=== PATIENT | male | born 1950 | race Caucasian/White ===

== ENCOUNTER 2024-08-03 09:47 | Emergency (ER) | payer MEDICARE, OTHER, SELFPAY ==
[2024-08-03 09:55] VITALS: BP 119/70
--- NOTE | 2024-08-03 10:25 | ED.GENMED ---
History of Present Illness
General
Chief Complaint: Weakness
Time Seen by Provider: 08/03/24 10:25
History of Present Illness
History of Present Illness:
TIME OF INITIAL ENCOUNTER: 10:30 AM
HPI: This morning, the patient awoke feeling fine but then had some lightheadedness. Before 8 AM, the patient developed 'a twinge of here' as he points to the left upper part of the chest near the shoulder. He then had some discomfort towards the
left side of the neck. The lightheadedness comes and goes. He feels somewhat weak in the legs that also comes and goes. He overall has no significant symptoms currently. He feels well-hydrated currently. He does take blood pressure medication
with HCTZ.
EXAM:
GENERAL: Well appearing in no distress
HEENT: Moist oral mucosa
CARDIOVASCULAR: No murmurs, normal heart rate, regular rhythm, No chest wall tenderness
PULMONARY: No respiratory distress, breath sounds are clear and equal
ABDOMEN: Soft with no peritoneal signs, no tenderness
NEUROLOGIC: Excellent strength all extremities, no coordination deficits
PSYCHIATRIC: Appropriate mental status, normal insight and judgement
EXTREMITIES: Nontender, no edema, moves all extremities equally
SKIN: No rash, no lesions
NUMBER AND COMPLEXITY OF PROBLEMS ADDRESSED AT THE ENCOUNTER
� Chronic conditions affecting care: High blood pressure
� Acute Exacerbation and/or Progression of Chronic Illness: This is an acute problem
� Differential Diagnosis includes: Doubt dehydration as patient states he has been drinking plenty of fluid, hyponatremia as he is on HCTZ, viral syndrome, very low suspicion for ACS as he just has 'a twinge' of chest, although
his room air sats vary from 92% to 98%, he has no shortness of breath.
AMOUNT AND/OR COMPLEXITY OF DATA TO BE REVIEWED AND ANALYZED
� I performed an independent evaluation of and my interpretation is:
EKG: Sinus 85, leftward axis deviation, nonspecific ST abnormality, first-degree AV block with no old to compare (210 ms)
CT:
X-rays: Chest x-ray shows right hemidiaphragm versus large diaphragmatic hernia but no evidence of pneumonia
Laboratory Studies: CBC, chemistry, troponin less than 0.012
Other:
� Review of other/old records: [facility]
� Clinical information was obtained by an independent historian: Spoke to at bedside
� Prescriptions/Medications Considered but not given:
� Further testing considered but not performed:
RISK OF COMPLICATIONS AND/OR MORBIDITY OR MORTALITY OF PATIENT MANAGEMENT
� Social determinants of health affecting care: Lives at home
� Discussion with other providers:
� Escalation of care including admission/observation vs risk of discharge considered: the patient had a troponin drawn over 3 hours after chest pain onset. Troponin and vital signs and EKG unremarkable. Mild hypoxia noted
however the patient reports no shortness of breath. Chest x-ray shows elevated right hemidiaphragm versus possible diaphragmatic hernia
ANY OTHER UPDATES:
12:50 PM: On reassessment without any intervention, the patient feels fine and has no further symptoms. I recommend that he follows up with a farm contractor. He states that he saw farm contractor many years ago but cannot remember with whom.
Past History
Past History
ED Past Medical History: Other (Hypertension, shoulder replacement,)
Social History
Tobacco: Former smoker
Alcohol: Occasional
Family History
Family History: Other (Mother with breast cancer)
Phy Exam
Physical Exam
Physical Exam:
See HPI
Course
Orders/Labs/Results
Orders:
Orders
08/03/24 09:58
Electrocardiogram (*1) Urgent
Reason for Study: Chest Pain
EKG- Treatment ONCE
08/03/24 10:33
CR Chest - 2 Views Urgent
Comment:
Reason For Exam: mild hypoxia
08/03/24 11:20
Complete Blood Count/With Diff Urgent
Comprehensive Metabolic Panel Urgent
Troponin I Urgent
Abnormal Lab Results
08/03/24
11:20
Absolute Lymphs (auto) 0.6 L 10^3/uL
(1.2-3.4)
Absolute Monos (auto) 0.7 H 10^3/uL
(0.1-0.6)
Lymphocytes % 10.0 L %
(20.5-51.1)
Monocytes % 11.0 H %
(1.7-9.3)
BUN 27 H mg/dl
(9-20)
08/03/24 11:20
08/03/24 11:20
Vital Signs
Initial and Last Documented VS:
Initial Vital Signs
Temp Pulse Resp BP Pulse Ox
36.7 C 79 16 119/70 98
08/03/24 09:55 08/03/24 09:55 08/03/24 09:55 08/03/24 09:55 08/03/24 09:55
Last Documented Vital Signs
Temp Pulse Resp BP Pulse Ox
36.7 C 62 16 135/83 95
08/03/24 09:55 08/03/24 12:00 08/03/24 10:38 08/03/24 12:00 08/03/24 12:00
*Critical Care Note
Total Time (30-74mins, 75-104mins- exclusive of procedures): Not Applicable
ED Attending Note
-
Portions of this chart may have been created with voice recognition software.� Occasional wrong word or��sound alike� substitutions may have occurred due to the inherent limitations of voice recognition software.
Discharge Plan
Departure
Prescriptions:
No Action
valsartan-hydrochlorothiazide 160-12.5 mg Tablet
1 tab PO DAILY
multivitamin Capsule
1 cap PO DAILY
Fish Oil Capsule
1,000 mg PO DAILY
cholecalciferol (vitamin D3) [Vitamin D3] 25 mcg (1,000 unit) Tablet,Chewable
25 mcg PO DAILY
Referrals:
Rito Saravia MD [Family Provider, Family Practice]
Interventions
Interventions:
*Risk Screen - Suicide Last Done: 08/03/24 09:55
*General Assessment Last Done: 08/03/24 10:35
*Neglect/Abuse Screening Last Done: 08/03/24 09:55
*ED- Fall Risk Assessment Last Done: 08/03/24 10:35
*ED COVID-19 Vaccine History Last Done: 08/03/24 10:35
ED- Cardiac Assessment Last Done: 08/03/24 10:31
ED- Neurological Assessment Last Done: 08/03/24 10:31
ED- Pulmonary Assessment Last Done: 08/03/24 10:31
Discharge Date and Time
Print Language: GREEK
[2024-08-03 10:35] VITALS: BMI 32.2
[2024-08-03 10:38] VITALS: BP 106/66
[2024-08-03 11:00] VITALS: BP 118/78
[2024-08-03 11:28] VITALS: BP 134/93
[2024-08-03 11:35] LABS: % Basophils 0.5 % (0-2); % Eosinophils 4.2 % (0-6); % Immature Granulocytes 0.3 % (0-0.5); Absolute Eosinophils 0.3 10^3/uL (0-0.7); Absolute Lymphocytes 0.6 10^3/uL (1.2-3.4); Absolute Monocytes 0.7 10^3/uL (0.1-0.6); Absolute Neutrophils 4.6 10^3/uL (1.4-6.5); Hematocrit 47.9 % (39.0-52.0); Hemoglobin 16.4 g/dL (13.0-18.0); Mean Corp Hgb Conc. 34.2 g/dL (33.0-37.0); Mean Corpuscular Hgb 30.1 pg (27.0-31.0); Mean Corpuscular Volume 88.1 fL (80.0-94.0); Mean Platelet Volume 9.3 fL (7.4-10.4); Nucleated Red Blood Cells % 0 % (-); Platelet Count 257 10^3/uL (130-400); Red Blood Cell Count 5.44 10^6/uL (4.70-6.10); Red Cell Dist. Width 13.2 % (11.5-14.5); White Blood Cell Count 6.2 10^3/uL (4.8-10.8)
[2024-08-03 11:42] LABS: ALT (SGPT) 27 U/L (0-50); AST (SGOT) 26 U/L (17-59); Albumin 4.2 g/dl (3.5-5.0); Alkaline Phosphatase 55 U/L (38-126); Blood Urea Nitrogen 27 mg/dl (9-20); Calcium 9.4 mg/dl (8.4-10.2); Carbon Dioxide 28 mmol/L (22-30); Chloride 107 mmol/L (98-107); Estimated Creatinine Clearance 67 ml/min; Glucose 90 mg/dl (70-99); Potassium 3.9 mmol/L (3.5-5.1); Sodium 141 mmol/L (135-145); Total Bilirubin 0.7 mg/dl (0.2-1.3); Total Protein 6.7 g/dl (6.3-8.2); eGFR > 60.00
[2024-08-03 11:53] LABS: Troponin I < 0.012 ng/ml
[2024-08-03 12:00] VITALS: BP 135/83
[2024-08-03 13:00] VITALS: BP 120/80
== END 2024-08-03 13:35 | disposition home or self-care (01) ==
LOC: EMR 09:47
PROVIDERS: EMERGENCY PHYSICIAN Emergency Medicine; FAMILY PHYSICIAN Family Medicine
DX: R42 Dizziness and giddiness (principal); R53.1 Weakness; R07.89 Other chest pain; I10 Essential (primary) hypertension; Z96.619 Presence of unspecified artificial shoulder joint; Z87.891 Personal history of nicotine dependence
CPT/HCPCS: 99283; 71046; 80053; 84484; 85025; 93005

== ENCOUNTER → 2024-08-08 13:55 | Outpatient (REF) | payer MEDICARE, OTHER, SELFPAY | LOC: HWRCS 13:55 | PROVIDERS: ATTENDING PHYSICIAN Internal Medicine Cardiovascular Disease; FAMILY PHYSICIAN Family Medicine | DX: R06.09 Other forms of dyspnea (principal) | CPT/HCPCS: 93306 ==

== ENCOUNTER → 2024-08-21 10:51 | Outpatient (REF) | payer MEDICARE, OTHER, SELFPAY | LOC: RCS 10:51 | PROVIDERS: ATTENDING PHYSICIAN Internal Medicine Cardiovascular Disease; FAMILY PHYSICIAN Family Medicine | DX: R07.9 Chest pain, unspecified (principal) | CPT/HCPCS: 78452; 93017; A9500 ==

== ENCOUNTER 2024-08-22 09:05 | Day surgery (SDC) | payer MEDICARE, OTHER, SELFPAY ==
[2024-08-22] VITALS (13 sets, daily range): BP systolic 90–140; BP diastolic 65–95; BMI 33.7
[2024-08-22] MEDS: LOW STRENGTH ASPIRIN 324 MG PO (09:54)
[2024-08-22] MEDS: NSS 280 ML IV (09:56)
--- NOTE | 2024-08-22 14:25 | ITS.CL.CATH ---
Data Visualization Developer - Catheterization
Cardiac Catheterization
Procedure Report:
LEFT HEART CATHETERIZATION
Date of Procedure: August 22, 2024
Referring: Jayesh Carlos.
PROCEDURES:
1. Left heart catheterization, coronary angiogram.
2. Moderate sedation.
INDICATION: Abnormal stress test
ACCESS: Right radial artery, 6Fr. sheath, under US guidance.
HEMODYNAMICS : (mmHg)
AO (s/d) : 112/70
LVEDP : 17
Upon pullback and invasive transaortic mean gradient of about 25 mmHg was noted concerning for possible moderate aortic stenosis.
CORONARY FINDINGS
Dominance: Right
Left Main Trunk (LMT): Large caliber vessel that gives rise to the LAD and LCx branches and there is mild diffuse atherosclerotic plaque
Left Anterior Descending Artery (LAD): Large caliber vessel that gives off 1major diagonal branch as it courses along the anterior inter-ventricular groove before wrapping around the cardiac apex. Mid LAD just distal to the takeoff of the major
diagonal has 80 to 85% stenosis. Proximal portion of D1 also has a 70% stenosis. Distal to apical LAD appears to be 100% chronic total occlusion with right to left collaterals. There is also evidence of collaterals from LAD septals to the apical
LAD
Left Circumflex Artery (LCx): Large caliber vessel that gives off 2 major obtuse marginal (OM) branches as it courses along the atrio-ventricular (AV) groove. There is a high rising OM1 that has a eccentric 70 to 80% ostial to proximal stenosis
with the distal vessel being a good bypass target. Mid left circumflex just proximal to the takeoff of a ectatic OM 2 with an eccentric 60 to 70% stenosis.
Right Coronary Artery (RCA): Large caliber dominant vessel that gives rise to the posterior descending artery (RPDA) and postero-lateral ventricular (RPLV) branches distally. The RCA is a very ectatic vessel with mild to moderate diffuse
atherosclerotic plaque. The RPL branch is medium caliber with a 80% occlusion in the midportion. Distal RPDA has 40% stenosis. Right to left collaterals are also noted.
SEDATION: 27 minutes of procedural sedation was utilized. IV Midazolam and IV Fentanyl were administered. An independent medical apparatus model maker was present to assist with and help manage the patient's level of consciousness and physiologic status.
RADIATION SUMMARY: Fluoro Time (min): 1.5, Dose (mGy): 404.88, DAP (Gy.cm2) : 26.7
Closure Device: There were no immediate intra-procedural complications. The sheath was pulled in the cardiac cath lab manager and a vascular-band applied to the right wrist for radial artery hemostasis using the patent hemostasis technique.
CONCLUSIONS
1. Multivessel coronary artery disease as described above.
2. Upon pullback and invasive transaortic mean gradient of about 25 mmHg was noted concerning for possible moderate aortic stenosis.
3. LVEDP of 17 mmHg.
RECOMMENDATIONS
1. Wean radial band per protocol. Monitor right hand perfusion and for bleeding from the radial site following removal of the vascular-band following trans-radial access.
2. Continue aggressive medical therapy and risk factor modification for secondary CAD prevention.
3. Hydrate with normal saline to mitigate the risk of contrast-induced acute kidney injury.
4. Outpatient CT surgery consult for discussion and consideration of coronary artery bypass grafting versus continued medical therapy.
Copy to: Jayesh Carlos. and Mg Avalos
Ketty Longo MD, [facility], [facility]
[2024-08-22] MEDS: TOPROL XL 25 MG PO (14:31)
== END 2024-08-22 16:50 | disposition home or self-care (01) ==
LOC: CATH 09:05
PROVIDERS: ATTENDING PHYSICIAN Internal Medicine Interventional Cardiology; FAMILY PHYSICIAN Family Medicine; OTHER PHYSICIAN Internal Medicine Cardiovascular Disease
DX: I25.10 Atherosclerotic heart disease of native coronary artery without angina pectoris (principal); R94.39 Abnormal result of other cardiovascular function study; R07.9 Chest pain, unspecified; I10 Essential (primary) hypertension; I44.0 Atrioventricular block, first degree; Z87.891 Personal history of nicotine dependence; Z79.82 Long term (current) use of aspirin
CPT/HCPCS: 99152; 99153; C1894; 93458; Q9967

== ENCOUNTER → 2024-09-08 15:19 | Outpatient (REF) | payer MEDICARE, OTHER, SELFPAY | LOC: RAD 15:19 | PROVIDERS: ATTENDING PHYSICIAN Thoracic Surgery (Cardiothoracic Vascular Surgery); FAMILY PHYSICIAN Family Medicine | DX: I25.10 Atherosclerotic heart disease of native coronary artery without angina pectoris (principal); I35.0 Nonrheumatic aortic (valve) stenosis; Z01.810 Encounter for preprocedural cardiovascular examination | CPT/HCPCS: 75573; Q9967 ==

== ENCOUNTER 2024-09-12 05:25 | Inpatient (IN) | payer MEDICARE, OTHER, SELFPAY ==
[2024-09-04 08:25] VITALS: BMI 33.6
[2024-09-04 09:00] LABS: Urine Character Clear (Clear)
[2024-09-04 09:07] LABS: Hematocrit 46.8 % (39.0-52.0); Hemoglobin 16.1 g/dL (13.0-18.0); Mean Corp Hgb Conc. 34.4 g/dL (33.0-37.0); Mean Corpuscular Volume 87.3 fL (80.0-94.0); Nucleated Red Blood Cells % 0 % (-); Platelet Count 243 10^3/uL (130-400); Red Cell Dist. Width 12.8 % (11.5-14.5)
[2024-09-04 09:09] LABS: INR 1.10; PT 14.7 Sec (11.4-14.6)
--- NOTE | 2024-09-04 10:15 | CM ---
Met with and Mrs. Campos in [facility]'s. He states prior to admission he resides with his spouse in a two story home with two steps to enter. He states he has a bedroom/full bathroom on both levels. He states he goes up a full flight of steps to
his bedroom/full bathroom. He states prior to admission he was independent with ambulation and adls. He states he does not have any DME in the home. He states he has a prescription plan. His spouse states she will be home to assist in h is care if
needed. Medical work-up in progress. The discharge plan is to return home with his spouse and a home visit by the Transitional Care Nurse when medically stable.
We reviewed pre-op and post-op routines. We reviewed the shower instructions. He has a the soap, written instructions and the Cardiothoracic Surgery Educational Booklet. We reviewed restrictions including sternal precautions and driving
restrictions. We also discussed a home visit by the Transitional Care Nurse. He is agreeable to a home visit. The plan is to for AVR and CABG on Thursday, September 12, 2024.
[2024-09-04 10:21] LABS: ALT (SGPT) 24 U/L (0-50); AST (SGOT) 29 U/L (17-59); Albumin 4.4 g/dl (3.5-5.0); Alkaline Phosphatase 58 U/L (38-126); Blood Urea Nitrogen 22 mg/dl (9-20); Calcium 9.6 mg/dl (8.4-10.2); Carbon Dioxide 29 mmol/L (22-30); Chloride 104 mmol/L (98-107); Estimated Creatinine Clearance 62 ml/min; Glucose 85 mg/dl (70-99); Potassium 4.0 mmol/L (3.5-5.1); Sodium 140 mmol/L (135-145); Total Protein 7.0 g/dl (6.3-8.2); eGFR > 60.00
[2024-09-04 10:44] LABS: Glycohemoglobin (HgbA1c) 5.6 % (4.0-5.6)
[2024-09-12] VITALS (17 sets, daily range): BP systolic 73–143; BP diastolic 49–79; BMI 32.9
--- NOTE | 2024-09-12 05:49 | PTCARENOTE ---
admitted pt into 2260. pt admits to 2 chg showers and NPO since midnight. pt clipped, prepped, admission and med rec completed, meds given. all questions answered. awaiting cvor
[2024-09-12] MEDS: LOPRESSOR 25 MG PO (05:50)
[2024-09-12] MEDS: PROTONIX 40 MG PO (05:50)
[2024-09-12] MEDS: BACTROBAN 2% OINTMENT 1 APPLIC NASAL ×2 (05:51→21:16)
[2024-09-12] MEDS: MAGNESIUM OXIDE 500 MG PO (05:51)
--- NOTE | 2024-09-12 06:10 | W.CVOR.SURPR ---
CVOR Surgeon Immed Pre Op
-
I have examined this patient prior to performance of the scheduled procedure.
The patient's condition is unchanged from the time of the dictated/written History and
Physical and the patient is able to undergo the scheduled procedure.
CABG + AVR + LAAE
[2024-09-12 07:43] LABS: ACT+ - POC 145 Seconds (82-134)
[2024-09-12 07:49] LABS: Urine Character Clear (Clear)
[2024-09-12 08:01] LABS: Urine Red Blood Cell 0-2 /HPF (0-2)
[2024-09-12 09:20] LABS: ACT+ - POC 561 Seconds (82-134)
[2024-09-12 09:23] LABS: B.E. - POC -0.4 mmol/L; Glucose - POC 91 mg/dl (70-99); HCO3 - POC 25 mmol/L (21-28); Hematocrit - POC 40 % PCV (42-52); Hemodilution- POC No; Hemoglobin Calculated - POC 13.7; Ionized Calcium - POC 1.17 mmol/L (1.15-1.33); Lactate - POC 0.39 mmol/L (0.36-0.75); O2 Saturation %Calculated-POC 99.8 % (94-98); PCO2 - POC 40 mmHg (35-48); PO2 - POC 212 mmHg (83-108); Potassium - POC 2.7 mmol/L (3.5-5.1); Sodium - POC 142 mmol/L (136-145); Specimen Type - POC Arterial; pH - POC 7.39 (7.35-7.45)
[2024-09-12 10:33] LABS: ACT+ - POC 671 Seconds (82-134)
[2024-09-12 10:59] LABS: ACT+ - POC 498 Seconds (82-134)
[2024-09-12 11:16] LABS: ACT+ - POC 707 Seconds (82-134)
--- NOTE | 2024-09-12 11:28 | CM ---
Chart reviewed. Patient is in the OR today. Patient is independent of ADLS, lives with his in a 2 STH, 2 KIKI, 0 DME. Plan is for the patient to return home with CT Transitional RN. CM to follow
[2024-09-12 11:30] LABS: ACT+ - POC 674 Seconds (82-134)
[2024-09-12 11:30] LABS: B.E. - POC -0.4 mmol/L; Glucose - POC 147 mg/dl (70-99); HCO3 - POC 24 mmol/L (21-28); Hematocrit - POC 35 % PCV (42-52); Hemodilution- POC Yes; Hemoglobin Calculated - POC 11.9; Ionized Calcium - POC 1.09 mmol/L (1.15-1.33); Lactate - POC 0.69 mmol/L (0.36-0.75); O2 Saturation %Calculated-POC 100.0 % (94-98); PCO2 - POC 35 mmHg (35-48); PO2 - POC 391 mmHg (83-108); POC Comment WARM; Potassium - POC 3.7 mmol/L (3.5-5.1); Sodium - POC 140 mmol/L (136-145); Specimen Type - POC Arterial; pH - POC 7.43 (7.35-7.45)
[2024-09-12 11:35] LABS: ACT+ - POC 153 Seconds (82-134)
--- NOTE | 2024-09-12 12:03 | W.PN.CT.SURG ---
CT Surgery Operative Note
-
CARDIAC SURGERY OPERATIVE REPORT
Preoperative Diagnosis: Moderate aortic valve stenosis with multivessel coronary artery disease
Postoperative Diagnosis: Same
Procedure(s) Performed:
1. Standard sternotomy with aortic and right atrial cannulation
2. Internal mammary artery harvesting, left
3. Endoscopic vein harvesting of the right lower extremity
4. Coronary artery bypass grafting x 4 (In situ DAVILA to LAD, Ao to RSVG to high diagonal to OM, Ao to RSVG to RPL B)
5. Trans-esophageal echocardiography
6. Placement of temporary ventricular pacing wires
7. Surgical aortic valve replacement [25 mm bioprosthesis]
Date of Surgery: 09/12/2024
Comorbidities:
1. Multi vessel coronary artery disease, symptomatic
2. Moderate aortic valve stenosis with heavily calcified valve
3. Hypertension
4. Hyperlipidemia
5. Elevation of right hemidiaphragm, idiopathic
Attending Surgeon: Connor Espinoza MD, MS
Assistants: Jody Hilliard PA-C (present and necessary to first line supervisor, endoscopic vein harvest, retraction, suction, exposure, suture management, and wound closure under my direction) and Brown Pickett, PGY 2 (Cardiac Surgery Resident)
Anesthesiology: Pardeep Messina MD and Dario Campbell CRNA
Scrub and Circulating RNs: Doni Payton RN, Thao Chen RN
Tow Bar Driver: Lucinda Blunt CCP
Anesthesia: GETA
EBL: per perfusion records
Products: None
CPB Time: 123 minutes
Aortic Cross Clamp Time: 110 minutes
Indication(s) for Procedures: This is a 74-year-old male who had a stress test that was found abnormal. This led to left heart catheter demonstrated multivessel coronary artery disease involving the proximal LAD. He is also found to have a
moderate degree of aortic valve stenosis. He has been recently becoming more symptomatic and so is referred for surgical intervention. I offered him AVR and CABG. The risk and benefits were discussed as well as the STS risk reviewed. Ultimately
shared decision making was to pursue operative intervention..
Aortic Valve Description: Heavily calcified most of the noncoronary cusp with large calcium infiltration into the annulus. The right and left were also calcified but not nearly as bad as the noncoronary cusp.
Conduit(s) Quality:
DAVILA -excellent/Shila
RSVG -good/minor thickening but overall good quality
Target(s) Quality:
RPLB -small/flow probe assessment demonstrated a mean flow of approximately 15 cc a minute but there was a high pulsatility index indicating likely not significant proximal disease
OM -small/overall good flow and test dosing antegrade, the sequential graft here had a mean flow of 27 cc a minute with a pulse index of 2.9
Diagonal -excellent/large sized target with the distal end of the sequential graft clamp, there was a mean flow approximately 40 to 50 cc a minute here, again mean flow from the sequential graft on flow probe was 27 cc a minute with a pulse index of
2.9
LAD -excellent/the midportion LAD was free of calcium however the distal apex was heavily calcified and was the proximal portion of the LAD. Mean flow on Transonic flow probe assessment was 18 cc a minute with a pulse index of 4.6
Findings: LVEF on intraoperative JOSÉ MIGUEL was 60% and 60% post procedure with no new regional wall motion abnormalities. ST segments were isoelectric on EKG. There was no prosthetic PVL or AI. Mean gradient across the prosthesis was 6 mmHg. The DAVILA was
harvested in a skeletonized fashion. Following bypass grafting, test dose cardioplegia was given down each distal and confirmed patency and hemostasis. The aortic valve was replaced with a 25 mm bioprosthesis a total of 14 nonpledgeted 2-0 Ethibond
sutures placed from LVOT through annulus through sewing cuff and secured in place with core knots. The noncoronary cusp was mostly calcified here. Following surgery, he did not require inotropic support, he responded well to volume loading. He
did not require any blood products. And he was in sinus rhythm. Cardiac index was over 2.
Specimen(s): Aortic valve leaflets.
Prosthesis:
1. 25 mm Roberts Somairis Resilia aortic valve, serial #[id number]
Description of Procedure: The patient was taken to the operating room. Their identity and procedure to be performed were verified and they were positioned supine on the operating table. Induction via general anesthesia with endotracheal intubation
was performed and central venous access and arterial monitoring were inserted. A preoperative transesophageal echocardiogram was performed. The patient was then prepped and draped from chin to feet in a sterile fashion. A preoperative time-out was
performed with all members of the team present. A midline chest incision was performed along with median sternotomy. Simultaneous endoscopic access of the right lower extremity for saphenous vein harvest was obtained along with administration of an
initial 5,000 units of IV heparin. A RulTract sternal retractor was positioned to exposure the left internal mammary bed. The mammary was harvested in a skeletonized pedicle fashion and found to have good flow. A bulldog clamp was applied to the
distal end of the mammary after dividing it. It was wrapped in a papaverine soaked RayTec and replaced back into the left hemithorax. The RulTract was exchanged for a median sternal retractor. The innominate vein was isolated. Full heparinization
was given (a total of 52,000 units). I created a pericardial well. The aortic cannulation site was chosen where it was soft, pliable, and free of calcium. Cannulation was performed with an arterial cannula in the ascending aorta and a triple-stage
venous cannula through the right atrial appendage. The arterial cannula line had an appropriate bounce and correlating pressures with test dosing. Next, a root vent/antegrade cannula was inserted into the ascending aorta. The ACT was confirmed to be
over 400 and retrograde autologous priming was performed before commencing cardiopulmonary bypass. The pulmonary artery was away from the aorta to facilitate a clamp site. The aortic cross-clamp was placed after decreasing the flow on the
bypass and mean arterial pressure. A total of 1.2L initial dose of antegrade Del-Nido cardioplegia solution was given and planned for re-dosing every 75 minutes as necessary. There was rapid electro-mechanical arrest of the heart at 300 cc of
cardioplegia. The left ventricle was observed for distention on echocardiogram and manual palpation. Cold slush was placed into a sponge and topically on the RV while we systemically cooled to 34 degrees centigrade.
I positioned the heart to expose the distal right coronary at the posterior lateral branch. A kake blade was used to expose the coronary and perform the arteriotomy. Coronary Max scissors were used to enlarge the incision. The saphenous vein was
trimmed and beveled to an appropriate size. The distal anastomosis was performed using 7-0 prolene in an end-to-side fashion. Antegrade cardioplegia was administered into the graft. Appropriate hemostasis and flow were confirmed. The graft was
measured for length to the aorta and cut. A suitable site on the obtuse marginal was chosen. We dissected and prepared the distal target in a similar fashion. An end-to-side anastomosis was created with a 7-0 prolene. Antegrade cardioplegia was
administered into the graft. Appropriate hemostasis and flow were confirmed. I then prepared the high diagonal branch in a similar fashion. A small coronary tree artery was then created and the underbelly of the vein was incised. A [id number]
anastomosis with the OM graft was used. I clamped the distal end of the sequential graft and gave cardioplegia down to test for both hemostasis and flow. Both were excellent. The graft was measured for length to the aorta and cut. A suitable
target on the mid/distal left anterior descending was identified. We dissected and prepared the distal target in a similar fashion. We retrieved the DAVILA from the chest and created a pericardial opening while being cognizant of the phrenic nerve to
facilitate the course of the mammary. The distal end of the mammary was prepped and beveled to size. We verified orientation and length of the RYLIE and found brisk flow. An end-to-side anastomosis was created with a 7-0 prolene. We temporarily
released the bulldog clamp on the mammary to inspect flow. Perfusion to the LAD territory was visualized and hemostasis was confirmed. The bull clamp was replaced on the mammary.
Carbon dioxide was used to flood the field. I turned my attention to the aortic valve and manually identified the location of the right coronary take off. An aortotomy was made approximately 1.5cm above the sinotubular junction. The location of both
left and right coronary vessels were visualized in the root. The aortic valve was inspected and found to be heavily calcified. The leaflets were excised and sent for pathological assessment. The annulus was debrided of any calcium. The root and left
ventricular outflow tract were thoroughly irrigated to remove any debris. A total of 14, nonpledgeted 2-0 ethibond annular sutures were placed [id number] circumferentially. These were brought through the sewing cuff of the prosthetic valve which
as then parachuted into place. The left and right coronary ostia were visualized and were unobstructed by the valve. A Cor-Knot device was used to secure the annular sutures. The valve was inspected and was well seated. The aortotomy was
approximated with 4-0 prolene in two layers. The heart was filled and the root was distended with antegrade cardioplegia to make final assessment of graft length and orientation. I created 2 aortotomies using a #11 blade then a 4.0mm aortic punch
above the aortic suture line. The proximal anastomoses were created in an end-to-side fashion using 6-0 prolene. At the same time, we started to re-warm to 36.5 degrees centigrade. The bulldog clamp was removed from the mammary and temporary bipolar
ventricular pacing wires were placed on the base of the right ventricle. The patient was placed in a Trendelenburg position and flows on bypass were lowered. The aortic cross clamp was removed and flows were slowly brought back up. The aortotomy
appeared hemostatic. All bypass grafts were inspected and were free from kinking or twisting. The distal and proximal anastomoses appeared hemostatic. De-airing maneuvers were performed. Transesophageal echocardiography revealed no paravalvular leak
and appropriate prosthetic function. Once de-airing was satisfactory, the left ventricular and root vents were removed. After verifying acceptable parameters, we initiated weaning from cardiopulmonary bypass. Once we were off cardiopulmonary bypass,
the venous cannulas was clamped and removed. A test dose of protamine was administered and the patient was monitored for any adverse reaction before resuming protamine. Once half of the protamine dose was delivered, pump suckers were turned off and
the systolic blood pressure was lowered for aortic decannulation. The aortic cannula was removed and pursestrings were tied down. All cannulation sites were oversewn with a 4-0 prolene. The aortic line, proximal, and distal coronary anastomoses were
hemostatic. The mammary bed was inspected and hemostasis was confirmed. Once the mediastinum was hemostatic, a 19Fr Jaspreet drain was placed in the left pleural cavity and two 24Fr Jaspreet drains were placed within the pericardium. The sternum was
approximated with 4#7 single and 3 #8 double stainless steel wires. Fascia was approximated with #1 vicryl suture. The subcutaneous, dermis and epidermis were closed in layers in a running fashion. The skin wound was cleansed and dressed.
All instrument, sponge, and needle counts were confirmed to be correct x 2 at the end of the operation. The patient was transferred to the cardiac intensive care unit in critical but stable condition.
I, Dr. Connor Espinoza, was present, scrubbed for, and performed all critical elements of this procedure.
Connor Espinoza MD, MS
Cardiothoracic Surgeon
[facility]
This operative dictation was created using the [email or web address] dictation system. Please excuse any grammatical, typographical, or 'sound alike' errors
[2024-09-12 12:11] LABS: B.E. - POC -2.8 mmol/L; Glucose - POC 124 mg/dl (70-99); HCO3 - POC 21 mmol/L (21-28); Hematocrit - POC 32 % PCV (42-52); Hemodilution- POC Yes; Hemoglobin Calculated - POC 10.9; Ionized Calcium - POC 1.30 mmol/L (1.15-1.33); Lactate - POC 1.05 mmol/L (0.36-0.75); O2 Saturation %Calculated-POC 91.6 % (94-98); PCO2 - POC 34 mmHg (35-48); PO2 - POC 62 mmHg (83-108); POC Comment POST; Potassium - POC 3.1 mmol/L (3.5-5.1); Sodium - POC 140 mmol/L (136-145); Specimen Type - POC Arterial; pH - POC 7.40 (7.35-7.45)
[2024-09-12 12:58] LABS: Glucose - Point of Care 117 mg/dl (70-99)
[2024-09-12 13:06] LABS: Hematocrit 38.2 % (39.0-52.0); Hemoglobin 13.5 g/dL (13.0-18.0); Platelet Count 200 10^3/uL (130-400)
[2024-09-12 13:13] LABS: B.E. -2.9 mmol/L; HCO3 22.0 mmol/L (21-28); O2 Saturation % 95.0 % (94-98); PCO2 38 mmHg (35-48); PO2 64 mmHg (83-108); Potassium 3.8 mMOL/L (3.5-5.1); Sodium 136 mMOL/L (136-145)
[2024-09-12 13:15] LABS: O2 Therapy vent
[2024-09-12 13:18] LABS: INR 1.69; PT 20.1 Sec (11.4-14.6)
[2024-09-12 13:19] LABS: APTT 38.6 Sec (23.4-35.0)
[2024-09-12] MEDS: CALCIUM GLUCONATE 100 IV (13:30)
[2024-09-12] MEDS: KCL 50 IV ×2 (13:30→18:51)
[2024-09-12 13:38] LABS: Blood Urea Nitrogen 18 mg/dl (9-20); Estimated Creatinine Clearance 85 ml/min; Glucose 111 mg/dl (70-99); Magnesium 2.8 mg/dl (1.6-2.3)
--- NOTE | 2024-09-12 13:44 | W.PN.CARDCBS ---
Addendum entered and electronically signed by Mor Leon MD 09/12/24 19:15:
74-year-old male who earlier today underwent elective CABG x 4, DAVILA to LAD, SVG to diagonal to OM, SVG to right posterolateral, with 25 mm Roberts Inspira's Resilia valve.
PMH: CAD/aortic stenosis, hypertension, paralyzed right hemidiaphragm
Meds reviewed.
SH: Former smoker
Currently extubated, hemodynamics satisfactory, on dobutamine and norepinephrine at low-dose, communicative, cooperative, not complaining of pain
Diminished breath sounds bases regular rate and rhythm, right leg wrapped, chest incision intact, no obvious murmurs
Labs reviewed, hemoglobin 13.1, creatinine 0.8,Chest x-ray with elevated right hemidiaphragm, tubes, sternotomy wire, endotracheal tube visualized
ECG sinus bradycardia first-degree AV block, minor diffuse T wave changes
Impression:
As below per Jv Alvarez. Reviewed in detail and agree unless otherwise specified
Plan:
Doing well immediately postop
Appreciate efforts of CT surgical team
We will continue to follow-up
Original Note:
Today's Communication / Plan
-
continue post op care
Impression / Plan
-
PCP: Dr. Lea
Cardiology: Dr. Avalos
Impression:
MV CAD
s/p CABG x 4 (In situ DAVILA to LAD, Ao to RSVG to high diagonal to OM, Ao to RSVG to RPL B) 09/12/2024
Moderate
s/p AVR w/ 25 mm Roberts Inspiris Resilia valve 09/12/2024
Hypertension
First-degree AV block
Prior tobacco abuse
Echo 08/08/2024: EF 55-60%, mild cLVH, trivial MR, mild with peak/mean gradients 29/19 mmHg, trivial AR, Sinus of Valsalva 3.7 cm, sinotubular junction 2.7 cm, proximal ascending aorta 3.5 cm
Intra-op JOSÉ MIGUEL 09/12/2024: EF 60%, moderate wtih trace AR, tracce to mild MR, POST-OP: well seated aortic valve w/ no paravalvular leak, mean gradient 7 mmHg
Plan:
-Found to have MV CAD by cardiac catheterization 08/22/2024 as well as moderate . Now s/p CABG x 4, AVR 09/12/2024.
-Seen post op, remains intubated, sedated.
-On Levo @5. BP overall stable.
-Post-op EKG stable, SR with 1st degree AV Block.
-Hgb stable at 13.5. No blood products given.
-Post-op CXR with mild pulmonary edema and small b/l pleural effusions. Follow volume status closely post-op.
-Aspirin, plavix.
-Continue post op care
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
Subjective
Date of Service: September 12, 2024
Intubated, sedated.
Objective
Labs:
09/12/24 12:58
Labs
Hgb 13.5 g/dL (13.0-18.0) 09/12/24 12:58
Hct 38.2 % (39.0-52.0) L 09/12/24 12:58
Plt Count 200 10^3/uL (130-400) 09/12/24 12:58
PT 20.1 Sec (11.4-14.6) H 09/12/24 12:58
INR 1.69 09/12/24 12:58
APTT 38.6 Sec (23.4-35.0) H 09/12/24 12:58
Sodium 140 mmol/L (135-145) 09/04/24 08:34
Potassium 4.0 mmol/L (3.5-5.1) 09/04/24 08:34
BUN 18 mg/dl (9-20) 09/12/24 12:58
Creatinine 0.8 mg/dL (0.7-1.3) 09/12/24 12:58
Glucose 111 mg/dl (70-99) H 09/12/24 12:58
Vital Signs and I&O:
Vital Signs
Temp Pulse Resp BP Pulse Ox
96.1 F L 59 16 131/73 99
09/12/24 13:00 09/12/24 13:30 09/12/24 13:30 09/12/24 05:16 09/12/24 13:30
Vital Signs
Temp Pulse Resp BP Pulse Ox
96.1 F L 59 16 131/73 99
09/12/24 13:00 09/12/24 13:30 09/12/24 13:30 09/12/24 05:16 09/12/24 13:30
Intake & Output
09/10/24 09/11/24 09/12/24 09/13/24
06:59 06:59 06:59 06:59
Output Total 110 / 110
Balance -110 / -110
Physical Exam
Physical Exam
GEN: No distress, sedated.
HEENT: Intubated
LUNGS: CTA anterolaterally, no wheezes/rales
CV: Reg, S1/S2, no murmur
EXT: No clubbing, cyanosis, or edema
NEURO: Gross non-focal
SKIN: Warm, dry, no rash
--- NOTE | 2024-09-12 13:56 | CON.INTV ---
Consultation
Consultation Request
Date/Time Consultation Requested: 09/12
Date/Time Consultation Performed: 09/12
Reason for Consultation: Critical care
Medical History
-
History of Present Illness:
History obtained from the chart as patient currently intubated and sedated. 74-year-old male with multivessel coronary disease, aortic stenosis. Patient had abnormal stress test, led to abnormal findings on catheterization. Patient is status post
bypass surgery, SAVR. Presently appears to be comfortable on volume-cycled ventilation. No history of blood products. Minimal chest tube drainage. We are asked to help from critical care standpoint
.
PMH: Hypertension, severe elevation right hemidiaphragm chronic per records, coronary disease, retinal attachment 2019, multiple shoulder surgeries
Past Medical History
Past Medical History: None (See above)
Past Surgical History: None (See above)
Social History
Tobacco: Former Smoker
Alcohol: Occasional
Employment: Retired
Family History
Family History: Other (Father age 75, mother . Family history of heart disease, stroke. 1 sister healthy. No children)
Allergies / Home Medications
Allergies
Allergy/AdvReac Type Severity Reaction Status Date / Time
spornax Allergy Rash Uncoded 09/03/24 12:17
Home Medications
�Medication �Instructions �Recorded �Confirmed �Last Taken �Type
cholecalciferol (vitamin D3) 25 25 mcg PO HS Supplement 08/03/24 09/12/24 09/04/24 08:00 History
mcg (1,000 unit) chewable tablet
(Vitamin D3)
valsartan 160 1 tab PO DAILY Blood Pressure 08/03/24 09/03/24 08/23/24 08:00 History
mg-hydrochlorothiazide 12.5 mg
tablet
aspirin 81 mg tablet 81 mg PO DAILY Blood Clot 08/22/24 09/12/24 09/11/24 08:00 History
Prevention/Tx
Blackwell 3 Fish Oil 1 cap PO HS Supplement 09/03/24 09/12/24 09/04/24 08:00 History
albuterol sulfate 90 mcg/actuation 1 inh inhalation PRN PRN breathing 09/03/24 09/12/24 03/05/24 History
aerosol inhaler issues
multivitamin 1 tab PO HS Supplement 09/03/24 09/12/24 09/04/24 08:00 History
rosuvastatin 40 mg tablet 40 mg PO HS High Cholesterol 09/03/24 09/12/24 09/11/24 18:00 History
metoprolol succinate 25 mg 25 mg PO DAILY Heart 09/12/24 09/12/24 09/11/24 08:00 History
tablet,extended release 24 hr Disease/Condition
(Toprol XL)
Review of Systems
-
Unable to Obtain full review of systems at this time due to: Patient Intubation
Vitals / Labs / Diagnostic Testing
Vital Signs
Temp Pulse Resp BP Pulse Ox
96.1 F L 59 16 131/73 99
09/12/24 13:00 09/12/24 13:30 09/12/24 13:30 09/12/24 05:16 09/12/24 13:30
Lab Data
09/12/24 12:58
Laboratory Results
09/12/24
12:58
PT 20.1 H
INR 1.69
APTT 38.6 H
pH 7.37
pCO2 38
pO2 64 L
HCO3 22.0
O2 Delivery Level vent
Diagnostic Testing:
Physical Exam
-
HEENT: Normocephalic, Anicteric and Other (Right IJ, left upper extremity)
Cardiovascular: S1/S2, Regular Rhythm and Murmur (n)
Respiratory: Wheeze (n), Rales (n), Rhonchi (n) and Non-Labored Respirations
GI: Soft and Non Distended
Neurology: Other (Sedated)
Skin: Good Color and Other (Right lower extremity bandage)
General: Comfortable
Assessment
-
74-year-old male with history of abnormal stress test, multivessel coronary disease, moderate to severe aortic stenosis now status post CABG x 4, SAVR 09/12/2024
S/p CABG/SAVR 09/12/24
Abnormal stress test
Multivessel coronary disease
Moderate to severe aortic stenosis
Normal EF
Conditions present prior to admission
Hypertension
Chronic elevated right hemidiaphragm
Distant tobacco history
Plan/recommendations
At this time, patient remains critically ill but appears to be comfortable
Chest tube output minimal
Chest x-ray with elevated right hemidiaphragm
Per records suggested to be chronic, no obvious mediastinal adenopathy.
No films prior to August 2024 available for comparison
Moving forward
Continue with ventilator wean per CT surgery protocol
Airway pressures adequate, oxygenation and ventilation noted
Given diaphragmatic abnormality, would recommend head of bed elevated as able
Postoperative chest x-ray with stable elevated right hemidiaphragm
Postoperative EKG sinus rhythm
Patient was post to see pulmonary in the last week, visit canceled
We will try to obtain additional history postextubation
Follow blood sugars, Insulin drip per protocol
Follow hemoglobin, transfuse per protocol
Reviewed with critical care nursing
Will follow
TCCT 31 min
[2024-09-12 14:07] LABS: Glucose - Point of Care 145 mg/dl (70-99)
--- NOTE | 2024-09-12 14:30 | PTCARENOTE ---
Pt received from [facility] @ 1255; Sedated and intubated; Pupils round, reactive, and equal; NS rhythm on monitor; VSS; Epicardial pacemaker present with pacer settings 40/4/3; DP and radial pulses present; Lungs diminished; ETT size 8 positioned and
secured at 23 cm right/left lip; Ventilator settings SIMV 16/500/5 FiO2 40%; CTx3 to -20 cm wall suction draining bloody drainage - no air leak, tidaling, or crepitus noted;Normoactive BS; Montez catheter in place draining yellow clear urine; Groin
puncture site CDI Sternal Midline Incision CDI/ R Leg or arm wrapped in Joao wrap I; No Edema present; A-line in left radial artery - line zeroed and level; Antoine present in right Cordis; PIVx 1; Levo/insulin/precedex infusing; See nursing
flowsheets for further details.
[2024-09-12 15:08] LABS: Glucose - Point of Care 123 mg/dl (70-99)
[2024-09-12 15:48] LABS: Hematocrit 36.9 % (39.0-52.0); Hemoglobin 13.1 g/dL (13.0-18.0); Platelet Count 223 10^3/uL (130-400)
[2024-09-12] MEDS: ALBUMIN 5% 250 IV ×2 (16:05→22:31)
[2024-09-12] MEDS: DOBUTREX 500 MG 250 IV (16:07)
[2024-09-12] MEDS: NEURONTIN PO ×2 (16:17)
[2024-09-12 16:21] LABS: Glucose - Point of Care 124 mg/dl (70-99)
--- NOTE | 2024-09-12 16:57 | PTCARENOTE ---
PT placed on Cpap @ 1650
[2024-09-12 17:12] LABS: Glucose - Point of Care 118 mg/dl (70-99)
[2024-09-12 17:32] LABS: B.E. - POC 0.4 mmol/L; Blood Urea Nitrogen - POC 18 mg/dl (3-120); Chloride - POC 107 mmol/L (96-111); Creatinine - POC 0.89 mg/dl (0.3-1.0); Glucose - POC 112 mg/dl (70-99); HCO3 - POC 25 mmol/L (21-28); Hematocrit - POC 36 % PCV (42-52); Hemodilution- POC Yes; Hemoglobin Calculated - POC 12.2; Ionized Calcium - POC 1.23 mmol/L (1.15-1.33); Lactate - POC 0.95 mmol/L (0.36-0.75); O2 Saturation %Calculated-POC 93.9 % (94-98); PCO2 - POC 39 mmHg (35-48); PO2 - POC 69 mmHg (83-108); Potassium - POC 3.9 mmol/L (3.5-5.1); Sodium - POC 144 mmol/L (136-145); Specimen Type - POC Arterial; pH - POC 7.42 (7.35-7.45)
--- NOTE | 2024-09-12 17:51 | RESPNOTE ---
pt extubated at 1740 to 10lpm midflow. 02 sats of 97% noted.
IS done
[2024-09-12] MEDS: LOW STRENGTH ASPIRIN 81 MG PO (18:40)
[2024-09-12] MEDS: NSS 500 IV (18:40)
[2024-09-12] MEDS: DILAUDID 0.25 MG IV (18:41)
[2024-09-12] MEDS: TYLENOL PO (19:17)
[2024-09-12] MEDS: PACERONE PO (19:17)
--- NOTE | 2024-09-12 20:00 | PTCARENOTE ---
assumed care of patient @ 1900. recieved pt laying in bed, AOx3. mild c/o pain in sternum, dilaudid given recently by previous RN. NSR with 1st degree AVB. BP labile - pt vagals with movement or talking to the 80s systolically, recovers to 100s. PAP
20s/10s, CVP ~ 8. C.I >2. V wire set to 40, 4, 2.5. no pacing noted, HR in the 80s currently. good pulses throughout, no edema noted. Lungs clear, diminished satting mid 90s on 7L mid flow. 2 meds, 1 pleural chest tube with serosang drainage no air
leaks, tidaling or crepitus noted. BS hypoactive, tolerating ice chips no nausea. hoffman present draining clear yellow urine. 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 R leg and R groin site CDI, covered with latonya wrap. R IJ cordis with swan, L a line, L PIV all patent.
central lines zeroed, flushed. recieved on insulin per protocol, dobut at 3, levo at 3. pt resting comfortably with call bull within reach.
[2024-09-12] MEDS: ANCEF 5 IV (21:12)
[2024-09-12] MEDS: PACERONE 200 MG PO (21:14)
[2024-09-12] MEDS: NEURONTIN 100 MG PO (21:15)
[2024-09-12] MEDS: TYLENOL 1000 MG PO (21:15)
[2024-09-12] MEDS: SENOKOT-S PO (21:16)
[2024-09-12] MEDS: VITAMIN D3 (cholecalciferol) PO (21:16)
--- NOTE | 2024-09-12 23:10 | PTCARENOTE ---
pt continues with labile BPs- mismatch between cuff and A line, cuff showing 20 points lower systolically, maps roughly the same. CTPA says to go by a line considering good waveform. UO trending down, 250 albumin given. otherwise pt is resting
comfortably with call bull within reach .
[2024-09-12] MEDS: THERAGRAN PO (23:12)
[2024-09-12] MEDS: CRESTOR PO (23:12)
[2024-09-12 23:58] LABS: Glucose - Point of Care 116 mg/dl (70-99)
[2024-09-12 23:58] LABS: Glucose - Point of Care 110 mg/dl (70-99)
[2024-09-12 23:58] LABS: Glucose - Point of Care 112 mg/dl (70-99)
[2024-09-13] VITALS (15 sets, daily range): BP systolic 79–124; BP diastolic 46–62; BMI 35.0
[2024-09-13 01:01] LABS: Glucose - Point of Care 83 mg/dl (70-99)
[2024-09-13 01:07] LABS: Glucose - Point of Care 110 mg/dl (70-99)
[2024-09-13] MEDS: ROXICODONE 5 MG PO (02:06)
[2024-09-13 03:15] LABS: Glucose - Point of Care 92 mg/dl (70-99)
--- NOTE | 2024-09-13 03:42 | PTCARENOTE ---
labs drawn and sent, c.i >2, dobut down to 2 per ctpa. Pt continues with soft BPs on cuff however 110s-130s BP on A line. CTPA says to titrate levo based on A line pressures. A line with appropriate waveform. levo between 0 and 1 mcs. pt having
increased 02 requirements. Deep breathing and coughing encouraged, IS 1500. Pt states he is a 'lazy breather'. encouraged to take deep breaths through nose. now satting 90 on 11L MF.
[2024-09-13 04:01] LABS: Hematocrit 30.8 % (39.0-52.0); Hemoglobin 10.9 g/dL (13.0-18.0); Mean Corp Hgb Conc. 35.4 g/dL (33.0-37.0); Mean Corpuscular Volume 86.0 fL (80.0-94.0); Platelet Count 151 10^3/uL (130-400); Red Cell Dist. Width 13.0 % (11.5-14.5)
[2024-09-13] MEDS: NITROGLYCERIN PREMIX 250 IV (04:08)
[2024-09-13 04:09] LABS: Blood Urea Nitrogen 24 mg/dl (9-20); Calcium 8.5 mg/dl (8.4-10.2); Carbon Dioxide 23 mmol/L (22-30); Chloride 112 mmol/L (98-107); Estimated Creatinine Clearance 68 ml/min; Glucose 80 mg/dl (70-99); Magnesium 2.4 mg/dl (1.6-2.3); Potassium 4.0 mmol/L (3.5-5.1); Sodium 139 mmol/L (135-145); eGFR > 60.00
--- NOTE | 2024-09-13 04:09 | PTCARENOTE ---
nitro started at 2.5 per ctpa to keep SBP on A line between 90-110
[2024-09-13 05:04] LABS: Glucose - Point of Care 89 mg/dl (70-99)
[2024-09-13] MEDS: ANCEF 5 IV ×2 (05:05→14:00)
[2024-09-13 05:44] LABS: B.E. -3.0 mmol/L; HCO3 22.0 mmol/L (21-28); O2 Saturation % 92.6 % (94-98); PCO2 38 mmHg (35-48)
[2024-09-13 05:45] LABS: PO2 58 mmHg (83-108)
--- NOTE | 2024-09-13 05:56 | PTCARENOTE ---
Addendum entered by Aureliano Molina RN 09/13/24 06:17:
initial settings 55L 100% - pt satting 93 %
Original Note:
abg sent d/t increasing o2 demands, p02 58. pt appears in no distress, breathing ok and clear throughout, no SOB. CTPA notified, RT to bring high flow machine.
[2024-09-13] MEDS: TYLENOL 1000 MG PO ×3 (06:06→20:36)
--- NOTE | 2024-09-13 06:29 | W.PN.CT ---
Today's Communication / Plan
-
-pod #1
-comfortable overnight on 11L midflow, however, ABG noted with low pO2 58 - started on high flow O2
-doing IS upto 1500. Has chronic elevated R hemidiaphragm
-SBP 90-[address] Espinoza - liberate today
-CI 2.93, CO 5.77, SVR 800s. Drips: Insulin, Dobut 1, Nitro 10
-CT outputs: 2 meds 135/285, L pleur 205/290 in 12/24 hrs
-wean off O2, then deline
-d/c insulin
-current meds (ASA, Plavix, Crestor, Amio, Protonix). Held Lopressor while on Dobut
-encourage IS, OOB
Assessment / Plan
-
- Moderate aortic valve stenosis with multivessel CAD - s/p Surgical aortic valve replacement [25 mm Roberts Inspiris Resilia bioprosthesis]; CABG x4 (In situ DAVILA to LAD, Ao to RSVG to high diagonal to OM, Ao to RSVG to RPL B) by Dr. Espinoza on
09/12/24, pod #1
- Intraop JOSÉ MIGUEL: LVEF pre and postop 60% with no regional wma. There was no prosthetic PVL or AI. Mean gradient across the prosthesis was 6 mmHg.
- Hypertension
- Hyperlipidemia
- Elevation of right hemidiaphragm, idiopathic
- Carpal tunnel repair 2022
- Detached retinal repair 2019, partial detachment repair 2023
- Acute postop blood loss anemia
- Acute postop pulmonary insufficiency, hypoxemia - started on high flow O2
- Acute postop atelectasis
- Acute postop hypovolemia with subsequent hypervolemia
Discussed patient care with: Nursing and Care Team
Subjective
-
Date of Service: September 13, 2024
Objective Data
-
PT 20.1 Sec (11.4-14.6) H 09/12/24 12:58
INR 1.69 09/12/24 12:58
APTT 38.6 Sec (23.4-35.0) H 09/12/24 12:58
Vital Signs
Vital Signs
Temp Pulse Resp BP Pulse Ox
98.3 F 76 16 79/55 92
09/13/24 00:00 09/13/24 00:10 09/13/24 00:10 09/13/24 00:00 09/13/24 00:10
CT Intake/Output/Weight
09/12/24 09/12/24 09/13/24
06:59 18:59 06:59
Intake Total 170.0 / 170.0
Output Total 610 / 1080 470 / 1080
Balance -610 / -910.0 -300.0 / -910.0
SaO2: 92
Physical Exam
-
General: Awake and AOx3
Cardiovascular: Regular rate & rhythm, No Murmurs and No Rub
Respiratory: Decreased Breath Sounds
Sternum: Stable
Incision: Clean, Dry and Intact
Extremities: No Edema
Abdomen: soft, nontender, nondistended, + decreased bowel sounds
Data Reviewed
-
Lab Results: Results Reviewed
Medications: Active Meds Reviewed
Chest X-Ray: Report Reviewed and Image Reviewed
ECG: Report Reviewed and Image Reviewed
--- NOTE | 2024-09-13 06:47 | W.PN.INTV ---
Today's Communication / Plan
Recommendations
Marginal blood pressure noted, continue with pressors per CT surgery
Follow creatinine, urine output
Postoperative anemia noted, stable
Wean oxygen, currently on high flow
Assessment
-
74-year-old male with history of abnormal stress test, multivessel coronary disease, moderate to severe aortic stenosis now status post CABG x 4, SAVR 09/12/2024
S/p CABG/SAVR 09/12/24
Abnormal stress test
Multivessel coronary disease
Moderate to severe aortic stenosis
Normal EF
Conditions present prior to admission
Hypertension
Chronic elevated right hemidiaphragm
Distant tobacco history
Plan/recommendations
At this time, patient remains critically ill but appears to be comfortable
Chest tube output minimal
Chest x-ray with elevated right hemidiaphragm, no acute findings
Per records suggested to be chronic, no obvious mediastinal adenopathy.
No films prior to August 2024 available for comparison
Remains on high flow oxygen
Marginal blood pressure noted, remains on dobutamine
Moving forward
Continue with pressors per CT surgery
Oxygenation noted, remains on high flow, wean as able
Given diaphragmatic abnormality, would recommend head of bed elevated as able
Incentive spirometry
Postoperative chest x-ray with stable elevated right hemidiaphragm
Postoperative EKG sinus rhythm
Patient was post to see pulmonary in the last week, visit canceled
Would benefit from eventual full PFT as outpatient
Follow blood sugars, Insulin drip per protocol
Follow hemoglobin, transfuse per protocol
Reviewed with critical care nursing
TCCT 31 min
Subjective Dataa
Subjective Data
Date of Service:
Date of Service: September 13, 2024
Subjective:
Patient extubated without difficulty, remains on high flow oxygen. Marginal blood pressure noted, remains critically ill but stable. Continues on dobutamine, insulin, nitroglycerin drip. Chest tube output minimal. Patient denies nausea,
abdominal pain. Mild incisional discomfort
Objective Data
Data Reviewed
Vital Signs / I&O / Oxygen:
Vital Signs
Temp Pulse Resp BP Pulse Ox
98.3 F 70 13 93/56 93
09/13/24 06:00 09/13/24 06:16 09/13/24 06:16 09/13/24 06:00 09/13/24 06:16
Intake and Output
09/11/24 09/12/24 09/13/24
06:59 06:59 06:59
Intake Total 367.7 / 367.7
Output Total 1320 / 1320
Balance -952.3 / -952.3
SaO2 93
Nasal Cannula flow liters per 55
minute
Physical Exam
General: Comfortable (On high flow) and Other (Right IJ, left upper extremity A-line, chest tube)
HEENT: Normocephalic
Cardiovascular: S1-S2, Regular Rhythm, Murmur (n), Rub (n), Peripheral Edema (n) and Other (Lower extremity bandage)
Respiratory: Wheeze (n), Crackles (n), Rhonchi (n), Non-Labored Respirations, Chest Tube and Other (Decreased right base)
GI: Soft, Non Distended and Non Tender
Neurology: Awake, Alert and No Motor Deficits
Skin: Cyanosis (n), Jaundice (n) and Rash (n)
Labs/Micro/Reports
Lab Data
09/13/24 03:19
09/13/24 03:19
Laboratory Results
09/12/24 09/13/24
12:58 05:35
PT 20.1 H
INR 1.69
APTT 38.6 H
pH 7.37 7.37
pCO2 38 38
pO2 64 L 58 L*
HCO3 22.0 22.0
O2 Delivery Level vent
[2024-09-13 07:14] LABS: Glucose - Point of Care 106 mg/dl (70-99)
[2024-09-13 07:21] LABS: B.E. -3.4 mmol/L; HCO3 21.3 mmol/L (21-28); O2 Saturation % 98.9 % (94-98); PCO2 36 mmHg (35-48); PO2 99 mmHg (83-108)
--- NOTE | 2024-09-13 08:00 | PTCARENOTE ---
VSS. NSR HR 70s. 95% on max hi dasha. lungs diminished but clear. IS 1500. CTx3 draining anf without issue. poor appetite but tolerating clears. hoffman draining clear yellow urine. pulses palpable. trace gen edema. insulin per glycemic protocol. nitro
@ 20 and dobut @1mcg. will wean as tolerated. and continue to montior.
[2024-09-13] MEDS: BACTROBAN 2% OINTMENT 1 APPLIC NASAL ×2 (08:27→20:37)
[2024-09-13] MEDS: NSS IV (08:27)
[2024-09-13] MEDS: VITAMIN C 500 MG PO (08:51)
[2024-09-13] MEDS: FEOSOL 325 MG PO (08:51)
[2024-09-13] MEDS: PACERONE 200 MG PO ×3 (08:51→20:37)
[2024-09-13] MEDS: NEURONTIN 100 MG PO ×3 (08:51→20:35)
[2024-09-13] MEDS: LIDOCAINE 4% PATCH 1 PATCH TOPICAL (08:52)
[2024-09-13] MEDS: SENOKOT-S 1 TABLET PO ×2 (08:52→20:36)
[2024-09-13] MEDS: PLAVIX 75 MG PO (08:52)
[2024-09-13] MEDS: PROTONIX 40 MG PO (08:52)
[2024-09-13] MEDS: LOW STRENGTH ASPIRIN 81 MG PO (08:52)
[2024-09-13 09:01] LABS: Glucose - Point of Care 103 mg/dl (70-99)
--- NOTE | 2024-09-13 09:59 | PTCARENOTE ---
d/c L Pleural CT without incident. will start to wean o2 as tolerated.
[2024-09-13] MEDS: FLEXBUMIN 50 IV ×2 (11:33→18:25)
[2024-09-13 11:58] LABS: Glucose - Point of Care 97 mg/dl (70-99)
--- NOTE | 2024-09-13 12:00 | PTCARENOTE ---
weaned dobut and marley off. VSS. remains on hi dasha but weaning as tolerated. OOB into chair with assistx2. tolerated great.
--- NOTE | 2024-09-13 13:59 | W.PN.ANS.POP ---
Anesthesia Post Operative
- Anesthesia Post Op Note
Vital Signs Stable-See Nursing Note: Yes
Airway Patent: Yes
Adequate Pain Control: Yes
Change in Mental Status: No
Current Postoperative Nausea & Vomiting: No
Anesthesia Complications: No
General Anesthetic Recall: No
Unplanned Admission: No
Post Op Hydration Adequate: Yes
[2024-09-13] MEDS: FERRLECIT 110 MG IV (14:00)
--- NOTE | 2024-09-13 17:00 | PTCARENOTE ---
weaned to 5L nc. pulse ox 94%. IS to 1750. BM in bathroom. will continue to monitor.
--- NOTE | 2024-09-13 20:00 | PTCARENOTE ---
assumed care of patient @ 1900. received pt laying in bed, Aox3. VSS. NSR on tele. BP stable. +pulses, trace edema throughout. lungs clear, diminished satting mid 90s on 5L. no SOB , no cough. 2 med chest tubes to wall suction with serosang
drainage. no air leak, tidaling or crepitus noted. BS normactive, tolearting diet. hoffman present draining clear divine urine. 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 R IJ cordis with KVO, piv both patent. pt resting
comfortably in bed with call bull within reach .
[2024-09-13] MEDS: VITAMIN D3 (cholecalciferol) 25 MCG PO (20:35)
[2024-09-13] MEDS: THERAGRAN 1 TABLET PO (20:36)
[2024-09-13] MEDS: REMOVE LIDOCAINE PATCH 1 PATCH REMOVE (20:37)
[2024-09-13] MEDS: CRESTOR 40 MG PO (20:37)
--- NOTE | 2024-09-13 23:00 | PTCARENOTE ---
pt c/o very mild SOB, asked for 02 to be turned up. pt satting 95 on 5L. pt boosted and sat up, o2 turned up to 10L MF for comfort. will titrate back down as able. otherwise resting comfortably, no change in assessment .
[2024-09-14] MEDS: MORPHINE SULFATE 2 MG IV (00:03)
[2024-09-14 04:00] VITALS: BP 120/64
--- NOTE | 2024-09-14 04:30 | PTCARENOTE ---
labs drawn and sent , breathing much improved, pt states no SOB. o2 titrated down to 7L. will continue to down titrate. pt resting comfortably with call bull within reach , no other change in assessment .
[2024-09-14 04:44] LABS: Hematocrit 27.9 % (39.0-52.0); Hemoglobin 9.6 g/dL (13.0-18.0); Mean Corp Hgb Conc. 34.4 g/dL (33.0-37.0); Mean Corpuscular Volume 88.3 fL (80.0-94.0); Platelet Count 128 10^3/uL (130-400); Red Cell Dist. Width 13.2 % (11.5-14.5)
[2024-09-14 05:07] LABS: Blood Urea Nitrogen 32 mg/dl (9-20); Calcium 8.5 mg/dl (8.4-10.2); Carbon Dioxide 30 mmol/L (22-30); Chloride 107 mmol/L (98-107); Estimated Creatinine Clearance 78 ml/min; Glucose 117 mg/dl (70-99); Magnesium 2.2 mg/dl (1.6-2.3); Potassium 4.3 mmol/L (3.5-5.1); Sodium 137 mmol/L (135-145); eGFR > 60.00
--- NOTE | 2024-09-14 05:32 | W.PN.CT ---
Today's Communication / Plan
-
-pod #2
-off HFNC, down to 6 L NC
-CT outputs: 2 meds 115/255 in 12/24 hrs
-reinforce IS use, intermittently worsening hypoxia, improved with IS
-current meds (ASA, Plavix, Crestor, Amio, Protonix). resume metoprolol 12.5 mg BID
-UOP 550/805 in 12/24 hrs, s/p albumin
-encourage IS, OOB
Assessment / Plan
-
- Moderate aortic valve stenosis with multivessel CAD - s/p Surgical aortic valve replacement [25 mm Roberts Inspiris Resilia bioprosthesis]; CABG x4 (In situ DAVILA to LAD, Ao to RSVG to high diagonal to OM, Ao to RSVG to RPL B) by Dr. Espinoza on
09/12/24, pod #2
- Intraop JOSÉ MIGUEL: LVEF pre and postop 60% with no regional wma. There was no prosthetic PVL or AI. Mean gradient across the prosthesis was 6 mmHg.
- Hypertension
- Hyperlipidemia
- Elevation of right hemidiaphragm, idiopathic
- Carpal tunnel repair 2022
- Detached retinal repair 2019, partial detachment repair 2023
- Acute postop blood loss anemia
- Acute postop pulmonary insufficiency, hypoxemia - started on high flow O2
- Acute postop atelectasis
- Acute postop hypovolemia with subsequent hypervolemia
Subjective
-
Date of Service: September 14, 2024
Objective Data
-
Lab Results
09/14/24 04:25
09/14/24 04:25
PT 20.1 Sec (11.4-14.6) H 09/12/24 12:58
INR 1.69 09/12/24 12:58
APTT 38.6 Sec (23.4-35.0) H 09/12/24 12:58
Vital Signs
Vital Signs
Temp Pulse Resp BP Pulse Ox
99.1 F 71 14 120/64 97
09/14/24 04:00 09/14/24 04:27 09/14/24 04:00 09/14/24 04:00 09/14/24 04:27
CT Intake/Output/Weight
09/13/24 09/13/24 09/14/24
06:59 18:59 06:59
Intake Total 367.7 / 392.3 611.6 / 951.6 340 / 951.6
Output Total 710 / 1365 445 / 1110 665 / 1110
Balance -342.3 / -972.7 166.6 / -158.4 -325 / -158.4
SaO2: 97
Physical Exam
-
General: Awake, Oriented and AOx3
Cardiovascular: Regular rate & rhythm, No Murmurs and No Rub
Respiratory: Clear and Decreased Breath Sounds (R base)
Sternum: Stable
Incision: Clean, Dry and Intact
Extremities: No Edema and No Erythema
Data Reviewed
-
Lab Results: Results Reviewed
Medications: Active Meds Reviewed
Chest X-Ray: Report Reviewed and Image Reviewed
ECG: Report Reviewed
[2024-09-14 06:00] VITALS: BMI 34.4
[2024-09-14] MEDS: TYLENOL 1000 MG PO ×3 (06:38→21:35)
--- NOTE | 2024-09-14 06:58 | W.PN.INTV ---
Today's Communication / Plan
Recommendations
Continue to wean oxygen
Chest tube management per CT surgery
Incentive spirometry
The patient will require outpatient pulmonary follow-up, information left in chart
Once transferred to telemetry, we will sign off. Please call with questions
Assessment
-
74-year-old male with history of abnormal stress test, multivessel coronary disease, moderate to severe aortic stenosis now status post CABG x 4, SAVR 09/12/2024
S/p CABG/SAVR 09/12/24
Abnormal stress test
Multivessel coronary disease
Moderate to severe aortic stenosis
Normal EF
Conditions present prior to admission
Hypertension
Chronic elevated right hemidiaphragm
Distant tobacco history
Plan/recommendations
At this time, patient appears to be improved objectively and subjectively
He has been weaned down to mid flow, 6 L off high flow
Feels breathing improved with his status from x-ray
Chest tube output minimal
Chest x-ray with elevated right hemidiaphragm, no acute findings
Per records suggested to be chronic, no obvious mediastinal adenopathy.
No films prior to August 2024 available for comparison
Patient states he was told many years ago he had abnormal findings on the right side at urgent care
Has had multiple shoulder surgeries in the past
Off dobutamine
Moving forward
Continue management per CT surgery
Oxygenation noted, remains on 6 L weaned down from high flow
Given diaphragmatic abnormality, would recommend head of bed elevated as able
Incentive spirometry
Postoperative chest x-ray with stable elevated right hemidiaphragm
Patient states this is likely present for many years per urgent care x-ray although cannot confirm
Patient has had multiple right shoulder surgeries in the past
Postoperative EKG sinus rhythm
Patient was post to see pulmonary in the last week, visit canceled
Would benefit from eventual full PFT as outpatient
Follow-up information left in chart
Follow blood sugars
Follow hemoglobin, transfuse per protocol
Reviewed with critical care nursing
Subjective Dataa
Subjective Data
Date of Service:
Date of Service: September 14, 2024
Subjective:
Patient is feeling improved overall. He feels breathing has improved, oxygen is being weaned. Denies nausea, abdominal pain. He is sitting in the chair appears to be in good spirits
Objective Data
Data Reviewed
Vital Signs / I&O / Oxygen:
Vital Signs
Temp Pulse Resp BP Pulse Ox
99.1 F 71 14 120/64 97
09/14/24 04:00 09/14/24 04:27 09/14/24 04:00 09/14/24 04:00 09/14/24 05:34
Intake and Output
09/12/24 09/13/24 09/14/24
06:59 06:59 06:59
Intake Total 367.7 / 392.3 951.6 / 951.6
Output Total 1320 / 1365 1110 / 1110
Balance -952.3 / -972.7 -158.4 / -158.4
SaO2 97
Nasal Cannula flow liters per 6
minute
Physical Exam
General: Comfortable (On high flow) and Other (Right IJ, left upper extremity A-line, chest tube)
HEENT: Normocephalic
Cardiovascular: S1-S2, Regular Rhythm, Murmur (n), Rub (n), Peripheral Edema (n) and Other (Lower extremity bandage)
Respiratory: Wheeze (n), Crackles (n), Rhonchi (n), Non-Labored Respirations, Chest Tube and Other (Decreased right base)
GI: Soft, Non Distended and Non Tender
Neurology: Awake, Alert and No Motor Deficits
Skin: Cyanosis (n), Jaundice (n) and Rash (n)
Labs/Micro/Reports
Lab Data
09/14/24 04:25
09/14/24 04:25
Laboratory Results
09/13/24
07:13
pH 7.38
pCO2 36
pO2 99
HCO3 21.3
O2 Delivery Level
[2024-09-14] MEDS: NEURONTIN 100 MG PO ×2 (09:02→21:35)
[2024-09-14] MEDS: LOW STRENGTH ASPIRIN 81 MG PO (09:02)
[2024-09-14] MEDS: BACTROBAN 2% OINTMENT 1 APPLIC NASAL ×2 (09:02→20:04)
[2024-09-14] MEDS: SENOKOT-S 1 TABLET PO (09:02)
[2024-09-14] MEDS: LIDOCAINE 4% PATCH 1 PATCH TOPICAL (09:02)
[2024-09-14] MEDS: VITAMIN C 500 MG PO (09:02)
[2024-09-14] MEDS: PLAVIX 75 MG PO (09:03)
[2024-09-14] MEDS: LOPRESSOR 12.5 MG PO (09:03)
[2024-09-14] MEDS: FEOSOL 325 MG PO (09:03)
[2024-09-14] MEDS: PACERONE 200 MG PO ×3 (09:03→21:36)
[2024-09-14] MEDS: PROTONIX 40 MG PO (09:03)
[2024-09-14 13:25] VITALS: BP 146/68
[2024-09-14] MEDS: FERRLECIT 110 MG IV (14:04)
[2024-09-14] MEDS: NEURONTIN PO (16:11)
[2024-09-14] MEDS: LASIX 40 MG PO (16:41)
[2024-09-14] MEDS: NSS IV (19:04)
[2024-09-14 19:18] VITALS: BP 122/59
[2024-09-14] MEDS: LOPRESSOR 25 MG PO (20:04)
[2024-09-14] MEDS: SENOKOT-S PO (20:05)
[2024-09-14] MEDS: REMOVE LIDOCAINE PATCH 1 PATCH REMOVE (20:05)
--- NOTE | 2024-09-14 20:16 | PTCARENOTE ---
assumed care of pt from previous rn. Pt sitting in chair at time of assessment. Pt AAOx4, ambulating in room, NSR per tele monitor HR 70s, +pulses, +1 R LE edema, pox 94% on 2L NC, Lungs diminished and clear throughout, occasional non productive
cough, IS 2000, +bs, pt voiding clear yellow urine in bathroom. all surgical sites intact, CT dressing changed, c/d/i, RIJ cordis infusing KVO, PIVx1 intact. plan of care discussed and questions encouraged. call bull within reach.
[2024-09-14] MEDS: THERAGRAN 1 TABLET PO (21:35)
[2024-09-14] MEDS: CRESTOR 40 MG PO (21:35)
[2024-09-14] MEDS: VITAMIN D3 (cholecalciferol) 25 MCG PO (21:35)
[2024-09-15] VITALS (9 sets, daily range): BP systolic 100–132; BP diastolic 54–72; PULSE 71; O2SAT 95–96; BMI 34.1
--- NOTE | 2024-09-15 00:19 | PTCARENOTE ---
pt resting comfortably in bed, VSS, NSR per tele monitor, HR 60s. assessment remains unchanged.
[2024-09-15 03:48] LABS: Hematocrit 28.9 % (39.0-52.0); Hemoglobin 10.0 g/dL (13.0-18.0); Mean Corp Hgb Conc. 34.6 g/dL (33.0-37.0); Mean Corpuscular Volume 88.1 fL (80.0-94.0); Platelet Count 150 10^3/uL (130-400); Red Cell Dist. Width 12.9 % (11.5-14.5)
--- NOTE | 2024-09-15 04:01 | PTCARENOTE ---
pt ambulating to bathroom, VSS, NSR per tele monitor, routine labs obtained. assessment unchanged
[2024-09-15 04:32] LABS: Blood Urea Nitrogen 25 mg/dl (9-20); Calcium 8.6 mg/dl (8.4-10.2); Carbon Dioxide 27 mmol/L (22-30); Chloride 106 mmol/L (98-107); Estimated Creatinine Clearance 77 ml/min; Glucose 113 mg/dl (70-99); Magnesium 2.0 mg/dl (1.6-2.3); Potassium 3.7 mmol/L (3.5-5.1); Sodium 136 mmol/L (135-145); eGFR > 60.00
--- NOTE | 2024-09-15 05:24 | W.PN.CT ---
Today's Communication / Plan
-
-pod #3
-O2 requirement continues to improve, down to 2 L NC
-PW/CT removed yesterday
-s/p 40 mg IV lasix, voiding/Cr improving
-current meds (ASA, Plavix, Crestor, Amio, Protonix, metoprolol 25 mg)
-multimodal pain management
-encourage IS, OOB
Assessment / Plan
-
- Moderate aortic valve stenosis with multivessel CAD - s/p Surgical aortic valve replacement [25 mm Roberts Inspiris Resilia bioprosthesis]; CABG x4 (In situ DAVILA to LAD, Ao to RSVG to high diagonal to OM, Ao to RSVG to RPL B) by Dr. Espinoza on
09/12/24, pod #3
- Intraop JOSÉ MIGUEL: LVEF pre and postop 60% with no regional wma. There was no prosthetic PVL or AI. Mean gradient across the prosthesis was 6 mmHg.
- Hypertension
- Hyperlipidemia
- Elevation of right hemidiaphragm, idiopathic
- Carpal tunnel repair 2022
- Detached retinal repair 2019, partial detachment repair 2023
- Acute postop blood loss anemia
- Acute postop pulmonary insufficiency, hypoxemia - started on high flow O2
- Acute postop atelectasis
- Acute postop hypovolemia with subsequent hypervolemia
Subjective
-
Date of Service: September 15, 2024
Objective Data
-
Lab Results
09/15/24 03:30
09/15/24 03:30
PT 20.1 Sec (11.4-14.6) H 09/12/24 12:58
INR 1.69 09/12/24 12:58
APTT 38.6 Sec (23.4-35.0) H 09/12/24 12:58
Vital Signs
Vital Signs
Temp Pulse Resp BP Pulse Ox
97.8 F 69 20 125/66 96
09/15/24 04:00 09/15/24 04:00 09/15/24 04:00 09/15/24 03:23 09/15/24 04:00
CT Intake/Output/Weight
09/14/24 09/14/24 09/15/24
06:59 18:59 06:59
Intake Total 340 / 951.6 190 / 190
Output Total 665 / 1110 325 / 325
Balance -325 / -158.4 -135 / -135
SaO2: 96
Physical Exam
-
General: Awake, Oriented and AOx3
Cardiovascular: Regular rate & rhythm, No Murmurs and No Rub
Respiratory: Clear and Equal
Sternum: Stable
Incision: Clean and Dry
Extremities: No Edema and No Erythema
Data Reviewed
-
Lab Results: Results Reviewed
Medications: Active Meds Reviewed
Chest X-Ray: Report Reviewed
ECG: Report Reviewed
[2024-09-15] MEDS: TYLENOL 1000 MG PO ×3 (05:57→21:06)
[2024-09-15] MEDS: LASIX 40 MG IV (08:55)
[2024-09-15] MEDS: NEURONTIN 100 MG PO ×3 (08:55→21:05)
[2024-09-15] MEDS: SENOKOT-S 1 TABLET PO ×2 (08:55→21:05)
[2024-09-15] MEDS: PACERONE 200 MG PO ×3 (08:55→21:04)
[2024-09-15] MEDS: PROTONIX 40 MG PO (08:55)
[2024-09-15] MEDS: VITAMIN C 500 MG PO (08:55)
[2024-09-15] MEDS: LOPRESSOR 25 MG PO (08:55)
[2024-09-15] MEDS: LOW STRENGTH ASPIRIN 81 MG PO (08:55)
--- NOTE | 2024-09-15 08:55 | PTCARENOTE ---
Assumed care of patient at 0700. Pt is awake, alert, and oriented. No complaints of pain. Pt remains SR with HR 70's. BP 127/66 MAP 84. Pulse oximetry 95% on room air. Pt tolerating PO diet. Voiding without issue. Midsternal incision approximated
and TRUST OFFICER. Right leg incision and right groin puncture approximated and TRUST OFFICER. Right IJ cordis in place with KVO.
[2024-09-15] MEDS: PLAVIX 75 MG PO (08:56)
[2024-09-15] MEDS: LIDOCAINE 4% PATCH TOPICAL (08:56)
[2024-09-15] MEDS: BACTROBAN 2% OINTMENT 1 APPLIC NASAL ×2 (08:56→21:07)
[2024-09-15] MEDS: FEOSOL PO (10:02)
--- NOTE | 2024-09-15 11:15 | PTCARENOTE ---
Pt ambulated with cardiac rehab, steps completed without issue. Pt remains SR with HR 120/68 MAP 84. Pulse oximetry 96% on room air.
[2024-09-15 11:47] LABS: B.E. - POC 4.0 mmol/L; Glucose - POC 107 mg/dl (70-99); HCO3 - POC 30 mmol/L (21-28); Hematocrit - POC 36 % PCV (42-52); Hemodilution- POC Yes; Hemoglobin Calculated - POC 12.3; Ionized Calcium - POC 1.06 mmol/L (1.15-1.33); Lactate - POC < 0.30 mmol/L (0.36-0.75); O2 Saturation %Calculated-POC 100.0 % (94-98); PCO2 - POC 48 mmHg (35-48); PO2 - POC 543 mmHg (83-108); POC Comment CPB; Potassium - POC 3.3 mmol/L (3.5-5.1); Sodium - POC 141 mmol/L (136-145); Specimen Type - POC Arterial; pH - POC 7.40 (7.35-7.45)
[2024-09-15 11:48] LABS: B.E. - POC 0.8 mmol/L; Glucose - POC 155 mg/dl (70-99); HCO3 - POC 25 mmol/L (21-28); Hematocrit - POC 37 % PCV (42-52); Hemodilution- POC Yes; Hemoglobin Calculated - POC 12.4; Ionized Calcium - POC 1.11 mmol/L (1.15-1.33); Lactate - POC < 0.30 mmol/L (0.36-0.75); O2 Saturation %Calculated-POC 100.0 % (94-98); PCO2 - POC 36 mmHg (35-48); PO2 - POC 370 mmHg (83-108); POC Comment CPB; Potassium - POC 3.7 mmol/L (3.5-5.1); Sodium - POC 138 mmol/L (136-145); Specimen Type - POC Arterial; pH - POC 7.44 (7.35-7.45)
[2024-09-15 11:48] LABS: B.E. - POC 1.9 mmol/L; Glucose - POC 145 mg/dl (70-99); HCO3 - POC 25 mmol/L (21-28); Hematocrit - POC 37 % PCV (42-52); Hemodilution- POC Yes; Hemoglobin Calculated - POC 12.4; Ionized Calcium - POC 1.07 mmol/L (1.15-1.33); Lactate - POC < 0.30 mmol/L (0.36-0.75); O2 Saturation %Calculated-POC 100.0 % (94-98); PCO2 - POC 34 mmHg (35-48); PO2 - POC 367 mmHg (83-108); POC Comment CPB; Potassium - POC 4.1 mmol/L (3.5-5.1); Sodium - POC 140 mmol/L (136-145); Specimen Type - POC Arterial; pH - POC 7.48 (7.35-7.45)
[2024-09-15 11:48] LABS: B.E. - POC 2.3 mmol/L; Glucose - POC 128 mg/dl (70-99); HCO3 - POC 26 mmol/L (21-28); Hematocrit - POC 36 % PCV (42-52); Hemodilution- POC Yes; Hemoglobin Calculated - POC 12.3; Ionized Calcium - POC 1.07 mmol/L (1.15-1.33); Lactate - POC < 0.30 mmol/L (0.36-0.75); O2 Saturation %Calculated-POC 100.0 % (94-98); PCO2 - POC 37 mmHg (35-48); PO2 - POC 406 mmHg (83-108); POC Comment CPB; Potassium - POC 3.8 mmol/L (3.5-5.1); Sodium - POC 140 mmol/L (136-145); Specimen Type - POC Arterial; pH - POC 7.46 (7.35-7.45)
[2024-09-15] MEDS: NSS IV (11:55)
--- NOTE | 2024-09-15 12:31 | CM ---
Chart reviewed. Patient OOB ambulating in the halls. Patient is independent of ADLS, lives with his in a 2 STH, 2 KIKI, 0 DME. Plan is for the patient to return home with CT Transitional RN. CM to follow
[2024-09-15] MEDS: KCL 20 MEQ PO (12:35)
[2024-09-15] MEDS: MILK OF MAGNESIA 30 ML PO (12:38)
[2024-09-15 13:18] LABS: ACT+ - POC > 1003 Seconds (82-134)
[2024-09-15 13:18] LABS: ACT+ - POC > 1003 Seconds (82-134)
--- NOTE | 2024-09-15 14:00 | W.PN.CARDCBS ---
Today's Communication / Plan
-
Stable cardiology status
Received IV Lasix earlier today
Remains in sinus rhythm status post CABG
Impression / Plan
-
PCP: Dr. Lea
Cardiology: Dr. Avalos
Impression:
MV CAD
s/p CABG x 4 (In situ DAVILA to LAD, Ao to RSVG to high diagonal to OM, Ao to RSVG to RPL B) 09/12/2024
Moderate
s/p AVR w/ 25 mm Roberts Inspiris Resilia valve 09/12/2024
Hypertension
First-degree AV block
Prior tobacco abuse
Echo 08/08/2024: EF 55-60%, mild cLVH, trivial MR, mild with peak/mean gradients 29/19 mmHg, trivial AR, Sinus of Valsalva 3.7 cm, sinotubular junction 2.7 cm, proximal ascending aorta 3.5 cm
Intra-op JOSÉ MIGUEL 09/12/2024: EF 60%, moderate wtih trace AR, tracce to mild MR, POST-OP: well seated aortic valve w/ no paravalvular leak, mean gradient 7 mmHg
Plan:
Stable cardiology status status post CABG
Remains in sinus rhythm
Received dose of IV Lasix earlier today
Discussed with CT surgery PA
Progress Note - Applied Exercise Physiologist
Subjective
Date of Service: September 15, 2024
No complaints
Objective
Labs:
09/15/24 03:30
09/15/24 03:30
Labs
Hgb 10.0 g/dL (13.0-18.0) L 09/15/24 03:30
Hct 28.9 % (39.0-52.0) L 09/15/24 03:30
Plt Count 150 10^3/uL (130-400) 09/15/24 03:30
PT 20.1 Sec (11.4-14.6) H 09/12/24 12:58
INR 1.69 09/12/24 12:58
APTT 38.6 Sec (23.4-35.0) H 09/12/24 12:58
Sodium 136 mmol/L (135-145) 09/15/24 03:30
Potassium 3.7 mmol/L (3.5-5.1) 09/15/24 03:30
BUN 25 mg/dl (9-20) H 09/15/24 03:30
Creatinine 0.9 mg/dL (0.7-1.3) 09/15/24 03:30
Glucose 113 mg/dl (70-99) H 09/15/24 03:30
Vital Signs and I&O:
Vital Signs
Temp Pulse Resp BP Pulse Ox
98.7 F 68 20 120/68 96
09/15/24 12:00 09/15/24 12:30 09/15/24 12:00 09/15/24 11:06 09/15/24 12:00
Vital Signs
Temp Pulse Resp BP Pulse Ox
98.7 F 68 20 120/68 96
09/15/24 12:00 09/15/24 12:30 09/15/24 12:00 09/15/24 11:06 09/15/24 12:00
Intake & Output
09/13/24 09/14/24 09/15/24 09/16/24
06:59 06:59 06:59 06:59
Intake Total 367.7 / 392.3 951.6 / 951.6 190 / 190
Output Total 1320 / 1365 1110 / 1110 325 / 325 1100 / 1100
Balance -952.3 / -972.7 -158.4 / -158.4 -135 / -135 -1100 / -1100
Physical Exam
Physical Exam
General: Well developed, well nourished in NAD.
Neck: Supple, no JVD, HJR, carotids +2 B/L, no bruits bilaterally.
Heart: Non displaced PMI, RRR, no murmurs, No S3, S4, no rubs.
Lungs: Scattered rhonchi
Sternal dressings noted
Extremities: No clubbing, cyanosis or edema bilaterally.
Neuro: Grossly nonfocal, awake, alert and oriented x3.
[2024-09-15] MEDS: FERRLECIT 110 MG IV (14:09)
--- NOTE | 2024-09-15 17:50 | PTCARENOTE ---
Right IJ cordis d/c'd per order. Pt ambulating independently. Pt reports having a bowel movement today. Pt remains SR with HR 70's. BP 126/63 MAP 81. Pulse oximetry 96% on room air.
--- NOTE | 2024-09-15 20:00 | PTCARENOTE ---
assumed care of patient @ 1900. received pt laying in bed, Aox3. NSR on tele , + pulses throughout, +1 generalized edema, +2 to right leg around SVG harvest. Lungs clear, diminished satting mid 90s on room air. pt has needed 02 overnight, will keep
pulse ox on and assess. tolerating diet, +BM today. no n/v. voiding clear yellow urine in toilet. sternum LISA, R leg and R groin CDI , FIXED ASSETS ACCOUNTANT. PIV intact. Pt resting comfortably in bed with call bull within reach .
[2024-09-15] MEDS: CRESTOR 40 MG PO (21:04)
[2024-09-15] MEDS: VITAMIN D3 (cholecalciferol) 25 MCG PO (21:04)
[2024-09-15] MEDS: TOPROL XL 25 MG PO (21:05)
[2024-09-15] MEDS: THERAGRAN 1 TABLET PO (21:05)
[2024-09-15] MEDS: REMOVE LIDOCAINE PATCH REMOVE (21:06)
[2024-09-16] VITALS (7 sets, daily range): BP systolic 99–133; BP diastolic 62–68; BMI 33.8
--- NOTE | 2024-09-16 00:09 | PTCARENOTE ---
pt with periods of apnea while sleeping, desatting to the low 80s. 2L applied with resolution to the 90s. CTPA notified of apneic periods. otherwise no change in patient assessment, resting comfortably with call bull within reach .
[2024-09-16 02:31] LABS: Hematocrit 29.1 % (39.0-52.0); Hemoglobin 10.1 g/dL (13.0-18.0); Mean Corp Hgb Conc. 34.7 g/dL (33.0-37.0); Mean Corpuscular Volume 86.4 fL (80.0-94.0); Platelet Count 165 10^3/uL (130-400); Red Cell Dist. Width 13.3 % (11.5-14.5)
[2024-09-16 02:58] LABS: Blood Urea Nitrogen 26 mg/dl (9-20); Calcium 8.4 mg/dl (8.4-10.2); Carbon Dioxide 36 mmol/L (22-30); Chloride 105 mmol/L (98-107); Estimated Creatinine Clearance 77 ml/min; Glucose 101 mg/dl (70-99); Magnesium 2.2 mg/dl (1.6-2.3); Potassium 3.6 mmol/L (3.5-5.1); Sodium 139 mmol/L (135-145); eGFR > 60.00
[2024-09-16] MEDS: TYLENOL 1000 MG PO (04:17)
[2024-09-16] MEDS: KCL 40 MEQ PO (04:17)
--- NOTE | 2024-09-16 04:18 | W.PN.CT ---
Today's Communication / Plan
-
Plan:
-No major issues overnight. Hemodynamically and neurologically intact
-Switched from Lopressor to home Toprol XL
-Cont. current meds ( ASA, Plavix, Crestor, Amio, Protonix, Toprol XL)
-Weaned off O2
-F/U 2-view cxr
-Check wt this AM, possible diuresis depending on wt
-Encourage use of IS
-Suspected SANTIAGO, will likely need outpt sleep study, noted to have periods of desaturation (O2 sats 83-86%) @ night
-OOB into chair/Ambulate
-D/C home
Assessment / Plan
-
- Moderate aortic valve stenosis with multivessel CAD - s/p Surgical aortic valve replacement [25 mm Roberts Inspiris Resilia bioprosthesis]; CABG x4 (In situ DAVILA to LAD, Ao to RSVG to high diagonal to OM, Ao to RSVG to RPL B) by Dr. Espinoza on
09/12/24, pod #4
- Intraop JOSÉ MIGUEL: LVEF pre and postop 60% with no regional wma. There was no prosthetic PVL or AI. Mean gradient across the prosthesis was 6 mmHg.
- Hypertension
- Hyperlipidemia
- Elevation of right hemidiaphragm, idiopathic
- Carpal tunnel repair 2022
- Detached retinal repair 2018, partial detachment repair 2023
- Suspected SANTIAGO
- Class 1 obesity (BMI 34.1)
- Acute postop blood loss anemia
- Acute postop pulmonary insufficiency, hypoxemia - started on high flow O2
- Acute postop atelectasis
- Acute postop hypovolemia with subsequent hypervolemia
Discussed patient care with: Cardiology, Nursing, Respiratory Therapy, Pharmacy and Care Team
Subjective
-
Date of Service: September 16, 2024
Pt c/o mild incisional pain, otherwise feels well. Ambulating halls without difficulty
Objective Data
-
Lab Results
09/16/24 02:14
09/16/24 02:14
PT 20.1 Sec (11.4-14.6) H 09/12/24 12:58
INR 1.69 09/12/24 12:58
APTT 38.6 Sec (23.4-35.0) H 09/12/24 12:58
Vital Signs
Vital Signs
Temp Pulse Resp BP Pulse Ox
98.7 F 63 12 112/62 95
09/15/24 20:00 09/16/24 00:00 09/16/24 00:10 09/16/24 00:00 09/16/24 00:10
CT Intake/Output/Weight
09/15/24 09/15/24 09/16/24
06:59 18:59 06:59
Output Total 1300 / 1550 250 / 1550
Balance -1300 / -1550 -250 / -1550
SaO2: 95 (RA)
Physical Exam
-
General: Awake, Oriented and AOx3
Cardiovascular: Regular rate & rhythm, No Murmurs, No Rub and No Gallop
Respiratory: Decreased Breath Sounds (at bases, otherwise clear)
Sternum: Stable
Incision: Clean, Dry, Intact and Dressing Intact
Extremities: Other (+trace edema)
Data Reviewed
-
Lab Results: Results Reviewed
Medications: Active Meds Reviewed
Chest X-Ray: Report Reviewed and Image Reviewed
ECG: Report Reviewed and Image Reviewed
[2024-09-16] MEDS: LIDOCAINE 4% PATCH 1 PATCH TOPICAL (07:46)
[2024-09-16] MEDS: PLAVIX 75 MG PO (07:47)
[2024-09-16] MEDS: LOW STRENGTH ASPIRIN 81 MG PO (07:47)
[2024-09-16] MEDS: TOPROL XL 25 MG PO (07:47)
[2024-09-16] MEDS: PROTONIX 40 MG PO (07:47)
[2024-09-16] MEDS: VITAMIN C 500 MG PO (07:47)
[2024-09-16] MEDS: BACTROBAN 2% OINTMENT 1 APPLIC NASAL (07:47)
[2024-09-16] MEDS: PACERONE 200 MG PO (07:47)
[2024-09-16] MEDS: SENOKOT-S 1 TABLET PO (07:47)
[2024-09-16] MEDS: NEURONTIN 100 MG PO (07:48)
[2024-09-16] MEDS: KLOR-CON 20 MEQ PO (08:08)
[2024-09-16] MEDS: LASIX 40 MG IV (08:09)
--- NOTE | 2024-09-16 08:35 | PTCARENOTE ---
Handoff report received from nightshift RN. Pt Aox4, NSR 70s on tele, SBP 120s. RA satting 97%. Lungs clear and diminished in bases. Pt does not c/o pain at this time. Pt OOB in chair for breakfast. Independent ambulating in room. IS up to about
[id number]. Sternal incision glued and MORGUE TECHNICIAN, chest tube sites dressing CDI, RLE incision glued and LISA, groin puncture MORGUE TECHNICIAN and ecchymotic. + pulses. RLE +2 pitting edema near SVG, LLE trace edema. Patient taken for CXR via wheelchair and transport. 40
lasix and K given per order. Patient set up for shower. All needs met at this time, call bull within reach.
[2024-09-16] MEDS: NSS IV (11:08)
--- NOTE | 2024-09-16 11:13 | CM ---
Chart reviewed. Patient is independent of ADLS, lives with his tasha 2STH, 2 KIKI, 0 DME. Plan is for the patient to return home with CT Transitional RN. CM to follow
--- NOTE | 2024-09-16 11:59 | PTCARENOTE ---
2 View CXR completed per order. Patient showered, tolerated well. Pt ambulating in room. VSS at this time, no c/o of pain currently. Awaiting possible d/c orders. All needs met at this time, call bull within reach.
--- NOTE | 2024-09-16 12:04 | W.DCSUMMARY ---
Discharge Summary
Discharge Data
Date of Admission: 09/12/24
Date of Discharge: 09/16/24
-
Pending Results: No
Hospital Course
Primary care physician: Rito Lea
Outpatient rebrander: Robbie
Inpatient consultants: BRADLEY LEMUS
Procedures:
1. 09/12 aortic valve replacement with #25 Inspiris resilia, CABG x4 (DAVILA-LAD, SVG-dx-OM, SVG-RPL)
Primary Diagnosis:
1. multivessel coronary artery disease
2. moderate aortic stenosis
Secondary Diagnoses:
1. Hypertension
2. Hyperlipidemia
3. chronic elevation right hemidiaphragm
4. detached retina s/p repair 2018 & partial detachment & repair 2023
5. suspected SANTIAGO, sleep study to be done as OP
6. class 1 obesity
7. hx carpal tunnel release 2022
8. acute postop blood loss anemia
9. acute postop pulmonary insufficiency, resolved
HPI: Patient is a 74-year-old male who underwent an outpatient stress test that was found to be abnormal, subsequent left heart catheterization demonstrated multivessel coronary artery disease. Echo demonstrated normal LV function with moderate AAS
and mean gradient of 19 mmHg. He was therefore referred for CABG +/- AVR. After all preoperative workup was completed he was deemed a suitable candidate to undergo the procedure.
Hospital course: Patient was brought in electively on 09/12/2024 where he underwent the aortic valve replacement with CABG x [address] Espinoza without any perioperative complications. Please see full op report for details. Patient was transferred to
CVICU per protocol on dobutamine at 3. He extubated at approximately 5 PM. Patient remained hemodynamically stable overnight all vasoactive drips have been weaned off. On postop day 1 pleural chest tube was discontinued without incident. On
postop day 2 beta-blockers were titrated he was gently diuresed, temporary pacing wire and mediastinal chest tubes were discontinued without incident. Postop day 3 Cordis was removed he continues with IV Lasix for postop volume overload. On postop
day 4 two-view chest x-ray demonstrates stable chronic elevation of the right hemidiaphragm and small bilateral pleural effusions. Patient was discharged home with close follow-up with transitional care nursing [facility] see him in a few
days. He should continue Plavix for 1 month for vein graft patency.
Home medication changes: New prescription for Plavix for vein graft patency x 1 month. Lasix and potassium supplementation for 5 days for postoperative volume overload. Patient instructed to take Tylenol as needed for pain. Valsartan/HCTZ was
held at time of discharge due to relative hypotension.
Discharge Plan
-
Patient Disposition: Home (Routine Discharge)
Discharge Diagnosis/Procedures: coronary artery disease, moderate aortic stenosis; status post aortic valve replacement, CABG x4 (DAVILA/vein)
Condition: Good
Diet: Low Cholesterol and Low Sodium
Activity: No strenuous activity
Driving Restrictions: Not until seen by your Dr
Bathing Restrictions: OK to Shower
Other Services: Cardiac Rehab
Specialty Instructions: Weigh Daily- Call MD for wt gain/loss 3 lbs overnight/5 lbs in 1 week
Activity Restrictions/Additional Instructions:
ACTIVITY:
-No strenuous activity: no heavy lifting, pushing, pulling anything over 15 pounds for one month
-continue to use stairs as tolerated
DRIVING RESTRICTIONS:
-No driving for one month or until approved by your surgeon
WOUND CARE:
-Shower daily. Use soap & water.
-No lotions, creams or powders on incision area.
DIET:
-continue a low fat/low cholesterol diet.
-IF you are diabetic, continue carb controlled diet.
CARDIAC REHAB:
-Please make appointment to start in 5-6 weeks with your local hospital program. (See Cardiac Rehabilitation Discharge Booklet).
SPECIALTY INSTRUCTIONS:
-Weigh yourself daily. Call your physician for any weight gain/loss of 3 lbs overnight or 5 lbs in one week.
-REPORT any clicking noise or uneven appearance of your sternum to your surgeon immediately.
-If you smoke, you are instructed to quit. The [place] smoking hotline phone number is [phone]
Referrals:
CT Transitional Care Nurse [Outside]
Referral Note: The Cardiothoracic Transitional Care Nurse will call you to set up a visit in 1-2 days.
[facility]. Cardiac Rehab [Outside] - 10/23/24 11:30 am
Referral Note: Cardiac Rehab Orientation appointment is on 10/23/24 (Th) at 11:30 am
The Cardiac Rehab gym is located on the first floor of the [facility].
Nakia Worley MD [Active, Pulmonary Medicine]
Referral Note: 3 months with full PFT and walk test
Abnormal chest x-ray, right diaphragmatic problem
Kaitlin Gutierrez PA-C [Specified Professional Personl, Cardiology] - 10/27/24 1:40 pm
Rito Saravia MD [Family Provider, Family Practice]
Connor Espinoza MD [Active, Cardiac Surgery] - 10/20/24 1:00 pm
Prescriptions:
New
clopidogrel 75 mg Tablet
75 mg PO DAILY Qty: 30 0RF
acetaminophen 325 mg Tablet
650 mg PO Q6HPRN PRN (Reason: mild pain,headache,temp >101F ) Qty: 0 0RF
sennosides-docusate sodium 8.6-50 mg Tablet
1 tab PO Q12 PRNQty: 0 0RF
furosemide [Lasix] 40 mg tablet
40 mg PO DAILY Qty: 5 0RF
potassium chloride [Klor-Con M20] 20 mEq tablet,ER particles/crystals
20 meq PO DAILY Qty: 5 0RF
Continued
cholecalciferol (vitamin D3) [Vitamin D3] 25 mcg (1,000 unit) Tablet,Chewable
25 mcg PO HS
aspirin 81 mg Tablet
81 mg PO DAILY
Patient Comments:
First dose started 08/21/24
multivitamin Tablet
1 tab PO HS
albuterol sulfate 90 mcg/actuation Hfa Aerosol Inhaler
1 inh INHALATION PRN PRN (Reason: breathing issues)
[place] 3 Fish Oil
1 cap PO HS
rosuvastatin 40 mg tablet
40 mg PO HS
metoprolol succinate [Toprol XL] 25 mg tablet extended release 24 hr
25 mg PO DAILY
Discontinued
valsartan-hydrochlorothiazide 160-12.5 mg Tablet
1 tab PO DAILY
Discharge Orders:
Discharge Patient (As Directed); Ordered 09/16/24
Ordered By: Ritu Tavarez
Care Plan Goals
Care Plan Goals:
Problem: Readiness for enhanced knowledge related to diagnosis and treatment plan
Goal: Understand your diagnosis and treatment plan needs, including medications if applicable.
Instructions: Know your diagnosis, underlying causes and treatment plan options, including medications if applicable. Consult with your health care team to learn about your diagnosis and treatment plan, including medications if applicable.
Discharge Date and Time
Discharge Date/Time: 09/16/24 13:10
Print Language: GEORGIAN
--- NOTE | 2024-09-16 13:05 | PTCARENOTE ---
arrived at bedside. Tele pack and PIV removed. Patient dressed independently. Dc paperwork reviewed with both and Patient. All questions answered. Patient transported to [facility] in stable condition.
--- NOTE | 2024-09-16 13:45 | W.PN.CARDCBS ---
Today's Communication / Plan
-
Stable cardiology status for discharge
Impression / Plan
-
PCP: Dr. Lea
Cardiology: Dr. Avalos
Impression:
MV CAD
s/p CABG x 4 (In situ DAVILA to LAD, Ao to RSVG to high diagonal to OM, Ao to RSVG to RPL B) 09/12/2024
Moderate
s/p AVR w/ 25 mm Roberts Inspiris Resilia valve 09/12/2024
Hypertension
First-degree AV block
Prior tobacco abuse
Echo 08/08/2024: EF 55-60%, mild cLVH, trivial MR, mild with peak/mean gradients 29/19 mmHg, trivial AR, Sinus of Valsalva 3.7 cm, sinotubular junction 2.7 cm, proximal ascending aorta 3.5 cm
Intra-op JOSÉ MIGUEL 09/12/2024: EF 60%, moderate wtih trace AR, tracce to mild MR, POST-OP: well seated aortic valve w/ no paravalvular leak, mean gradient 7 mmHg
Plan:
Stable cardiology status for discharge
Remains in sinus rhythm
Discussed with CT surgery PA
Progress Note - Terrazzo Worker Apprentice
Subjective
Date of Service: September 16, 2024
No chest pain or shortness of breath
Objective
Labs:
09/16/24 02:14
09/16/24 02:14
Labs
Hgb 10.1 g/dL (13.0-18.0) L 09/16/24 02:14
Hct 29.1 % (39.0-52.0) L 09/16/24 02:14
Plt Count 165 10^3/uL (130-400) 09/16/24 02:14
PT 20.1 Sec (11.4-14.6) H 09/12/24 12:58
INR 1.69 09/12/24 12:58
APTT 38.6 Sec (23.4-35.0) H 09/12/24 12:58
Sodium 139 mmol/L (135-145) 09/16/24 02:14
Potassium 3.6 mmol/L (3.5-5.1) 09/16/24 02:14
BUN 26 mg/dl (9-20) H 09/16/24 02:14
Creatinine 0.9 mg/dL (0.7-1.3) 09/16/24 02:14
Glucose 101 mg/dl (70-99) H 09/16/24 02:14
Vital Signs and I&O:
Vital Signs
Temp Pulse Resp BP Pulse Ox
98.2 F 75 18 99/66 97
09/16/24 11:31 09/16/24 12:30 09/16/24 11:31 09/16/24 11:31 09/16/24 06:00
Vital Signs
Temp Pulse Resp BP Pulse Ox
98.2 F 75 18 99/66 97
09/16/24 11:31 09/16/24 12:30 09/16/24 11:31 09/16/24 11:31 09/16/24 06:00
Intake & Output
09/14/24 09/15/24 09/16/24 09/17/24
06:59 06:59 06:59 06:59
Intake Total 951.6 / 951.6 190 / 190
Output Total 1110 / 1110 325 / 325 1949 / 1949 550 / 550
Balance -158.4 / -158.4 -135 / -135 -1950 / -1950 -550 / -550
Physical Exam
Physical Exam
General: Well developed, well nourished in NAD.
Neck: Supple, no JVD, HJR, carotids +2 B/L, no bruits bilaterally.
Heart: Non displaced PMI, RRR, no murmurs, No S3, S4, no rubs.
Lungs: Scattered rhonchi
Sternal dressings noted
Extremities: No clubbing, cyanosis or edema bilaterally.
Neuro: Grossly nonfocal, awake, alert and oriented x3.
== END 2024-09-16 13:10 | disposition home or self-care (01) | DRG 219 ==
LOC: CVICU 05:25
PROVIDERS: Anesthesiology; Physician Assistant Medical; ADMITTING PHYSICIAN Thoracic Surgery (Cardiothoracic Vascular Surgery); CONSULT PHYSICIAN Internal Medicine Critical Care Medicine; FAMILY PHYSICIAN Family Medicine
PROC: 021209W Bypass Coronary Artery, Three Arteries from Aorta with Autologous Venous Tissue, Open Approach (ICD-10-PCS; 2024-09-12)
PROC: B24BZZ4 Ultrasonography of Heart with Aorta, Transesophageal (ICD-10-PCS; 2024-09-12)
PROC: 02100Z9 Bypass Coronary Artery, One Artery from Left Internal Mammary, Open Approach (ICD-10-PCS; 2024-09-12)
PROC: 5A1221Z Performance of Cardiac Output, Continuous (ICD-10-PCS; 2024-09-12)
PROC: 02RF08Z Replacement of Aortic Valve with Zooplastic Tissue, Open Approach (ICD-10-PCS; 2024-09-12)
PROC: 06BP4ZZ Excision of Right Saphenous Vein, Percutaneous Endoscopic Approach (ICD-10-PCS; 2024-09-12)
DX: I35.0 Nonrheumatic aortic (valve) stenosis (principal); J95.1 Acute pulmonary insufficiency following thoracic surgery; D62 Acute posthemorrhagic anemia; J98.11 Atelectasis; I25.10 Atherosclerotic heart disease of native coronary artery without angina pectoris; I10 Essential (primary) hypertension; E78.00 Pure hypercholesterolemia, unspecified; J98.6 Disorders of diaphragm; I44.0 Atrioventricular block, first degree; E86.1 Hypovolemia; E87.70 Fluid overload, unspecified; Y83.2 Surgical operation with anastomosis, bypass or graft as the cause of abnormal reaction of the patient, or of later complication, without mention of misadventure at the time of the procedure; E66.811 Obesity, class 1; Z68.34 Body mass index [BMI] 34.0-34.9, adult; Z79.82 Long term (current) use of aspirin; Z79.899 Other long term (current) drug therapy; Z82.49 Family history of ischemic heart disease and other diseases of the circulatory system; Z87.891 Personal history of nicotine dependence
CPT/HCPCS: 36415; 71045; 71046; 80048; 80053; 81003; 81015; 82248; 82330; 82565; 82805; 82810; 82947; 82962; 83036; 83735; 84132; 84302; 84520; 85014; 85018; 85025; 85027; 85049; 85610; 85730; 86850; 86900; 86901; 86920; 87070; 88305; 88311; 93005; 93312; 93320; 93325; 93880; 94002; J2916; P9045; P9047

== ENCOUNTER 2024-09-26 23:45 | Emergency (ER) | payer MEDICARE, OTHER, SELFPAY ==
[2024-09-26 23:48] VITALS: BP 113/71
--- NOTE | 2024-09-27 01:00 | ED.MUSCINJ ---
HPI-Injury
General
Chief Complaint: Musculo-Skeletal Complaint
Source: patient
Exam Limitations: none
Time Seen by Provider: 09/27/24 00:42
History of Present Illness-Injury
Initial Injury comments:
74-year-old male presents with sudden onset right wrist swelling and discomfort starting tonight. 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 He is on Plavix and aspirin. No known injury to the wrist. About 1 month
ago he had a heart catheterization and his right wrist was the access point for this. He denies any arm swelling or pain. No fevers or chills. No chest pain or shortness of breath. No prior history of gout. No other complaints
Past History
Past History
ED Past Medical History: Other (Hypertension, shoulder replacement,)
Social History
Tobacco: Former smoker
Alcohol: Occasional
Family History
Family History: Other (Mother with breast cancer)
Phy Exam
Physical Exam
Physical Exam:
General: Well-appearing male nontoxic no acute respiratory distress
HEENT: Normocephalic atraumatic
Musculoskeletal exam: Dorsum of the right wrist is swollen and tender over the radiocarpal joint. Not significantly erythematous. There is no lymphangitic streaking. He has increased pain to palpation over the radiocarpal joint with increased
pain with flexion and extension of the wrist.
Vascular: 2+ radial pulse right wrist without swelling over the volar aspect of the wrist
Neurologic: Good sensation right hand
Skin is warm without erythema
Injury Course
Orders/Labs/Results
Orders:
Orders
09/26/24 23:53
Hand, Right 3 View [CR Hand - Right Min 3 Views] Urgent
Comment:
Reason For Exam: pain and swelling, no trauma
09/27/24 01:52
Cephalexin Monohydrate [Keflex] 500 mg PO NOW STA
Dexamethasone [Decadron] 10 mg PO NOW STA
09/27/24 01:56
[place] Wrist Right-Tx ONCE
MDM/Problems Addressed
Differential Diagnosis Includes:
Right wrist swelling and pain sudden onset. No fevers. No streaks. No injury. X-ray of the right hand was obtained through triage which was negative for acute bony abnormality. Question possible underlying inflammatory issue such as gout or
tendinitis. Do not suspect DVT based on clinical exam. Discussed with the emergency room attending. Given recency of cardiac procedure, CT surgery was notified
*Pulse Oximetry
SaO2: 98
Oxygen Mode of Delivery: Room air
Patient hypoxic: no
*Critical Care Note
Total Time (30-74mins, 75-104mins- exclusive of procedures): Not Applicable
Update Note
Update Note:
Discussed with CT team members who saw the patient as well. From CT surgery standpoint patient is stable. No indication for admission. Will cover for potential inflammatory issue in the wrist such as gout. Given the recent surgery and
catheterization we will also cover with Keflex in the event of an underlying infection.
ED Attending Note
-
Portions of this chart may have been created with voice recognition software.� Occasional wrong word or��sound alike� substitutions may have occurred due to the inherent limitations of voice recognition software.
Discharge Plan
Departure
Patient Disposition: Home (Routine Discharge)
Date of Disposition: 09/27/24
Time of Disposition: 01:57
Patient with high blood pressure during this ER visit?: No
Discharge Problem:
Pain in wrist
Instructions: Gout
Prescriptions:
New
cephalexin 500 mg capsule
500 mg PO Q8H 7 Days Qty: 21 0RF
No Action
cholecalciferol (vitamin D3) [Vitamin D3] 25 mcg (1,000 unit) Tablet,Chewable
25 mcg PO HS
aspirin 81 mg Tablet
81 mg PO DAILY
Patient Comments:
First dose started 08/21/24
multivitamin Tablet
1 tab PO HS
albuterol sulfate 90 mcg/actuation Hfa Aerosol Inhaler
1 inh INHALATION PRN PRN (Reason: breathing issues)
[place] Fish Oil
1 cap PO HS
rosuvastatin 40 mg tablet
40 mg PO HS
metoprolol succinate [Toprol XL] 25 mg tablet extended release 24 hr
25 mg PO DAILY
clopidogrel 75 mg Tablet
75 mg PO DAILY Qty: 30 0RF
acetaminophen 325 mg Tablet
650 mg PO Q6HPRN PRN (Reason: mild pain,headache,temp >101F ) Qty: 0 0RF
sennosides-docusate sodium 8.6-50 mg Tablet
1 tab PO Q12 PRNQty: 0 0RF
furosemide [Lasix] 40 mg tablet
40 mg PO DAILY Qty: 5 0RF
potassium chloride [Klor-Con M20] 20 mEq tablet,ER particles/crystals
20 meq PO DAILY Qty: 5 0RF
Referrals:
Rito Saravia MD [Family Provider, Family Practice]
Activity Restrictions/Additional Instructions:
Take antibiotics as directed. Use splint for support. Please return here for increasing pain redness fever or other concerning finding. Follow-up with your doctor otherwise
Interventions
Interventions:
*Risk Screen - Suicide Last Done: 09/26/24 23:48
*Neglect/Abuse Screening Last Done: 09/26/24 23:52
Discharge Date and Time
Print Language: THAI
[2024-09-27] MEDS: KEFLEX 500 MG PO (02:45)
[2024-09-27] MEDS: DECADRON 10 MG PO (02:45)
== END 2024-09-27 03:01 | disposition home or self-care (01) ==
LOC: EMR 23:45
PROVIDERS: EMERGENCY PHYSICIAN Emergency Medicine; FAMILY PHYSICIAN Family Medicine
DX: M25.531 Pain in right wrist (principal); Z87.891 Personal history of nicotine dependence
CPT/HCPCS: 99283; 29125; 73130

== ENCOUNTER 2024-10-31 09:54 | Outpatient (RCR) | payer MEDICARE, OTHER, SELFPAY ==
[2024-10-30 10:17] LABS: HDL Cholesterol 63 mg/dl; LDL Cholesterol, Calculated 55 mg/dl; Very Low Density Lipoprotein 10 mg/dl (0-30)
== END 2024-10-31 23:59 | disposition home or self-care (01) ==
LOC: CRHB 09:54
PROVIDERS: ATTENDING PHYSICIAN Internal Medicine Cardiovascular Disease; FAMILY PHYSICIAN Family Medicine
DX: Z95.2 Presence of prosthetic heart valve (principal); Z95.1 Presence of aortocoronary bypass graft
CPT/HCPCS: 80061; G0422; G0423

== ENCOUNTER 2024-12-01 10:09 | Outpatient (RCR) | payer MEDICARE, OTHER, SELFPAY | END 2024-12-01 23:59 | disposition home or self-care (01) | LOC: CRHB 10:09 | PROVIDERS: ATTENDING PHYSICIAN Internal Medicine Cardiovascular Disease; FAMILY PHYSICIAN Family Medicine | DX: Z95.2 Presence of prosthetic heart valve (principal); Z95.1 Presence of aortocoronary bypass graft | CPT/HCPCS: G0422; G0423 ==

== ENCOUNTER 2025-01-02 10:39 | Outpatient (RCR) | payer MEDICARE, OTHER, SELFPAY | END 2025-01-02 23:59 | disposition home or self-care (01) | LOC: CRHB 10:39 | PROVIDERS: ATTENDING PHYSICIAN Internal Medicine Cardiovascular Disease; FAMILY PHYSICIAN Family Medicine | DX: I25.10 Atherosclerotic heart disease of native coronary artery without angina pectoris (principal); Z95.2 Presence of prosthetic heart valve (principal); Z95.1 Presence of aortocoronary bypass graft | CPT/HCPCS: G0422; G0423 ==

== ENCOUNTER 2025-01-21 11:20 | Outpatient (RCR) | payer MEDICARE, OTHER, SELFPAY ==
[2025-01-03 08:51] LABS: HDL Cholesterol 60 mg/dl; LDL Cholesterol, Calculated 51 mg/dl; Very Low Density Lipoprotein 13 mg/dl (0-30)
== END 2025-01-21 23:59 | disposition home or self-care (01) ==
LOC: CRHB 11:20
PROVIDERS: ATTENDING PHYSICIAN Internal Medicine Cardiovascular Disease; FAMILY PHYSICIAN Family Medicine; REFERRING PHYSICIAN Internal Medicine Geriatric Medicine
DX: Z95.1 Presence of aortocoronary bypass graft (principal); Z95.2 Presence of prosthetic heart valve
CPT/HCPCS: 36415; 80061; G0422; G0423

== ENCOUNTER → 2025-02-20 12:53 | Outpatient (REF) | payer MEDICARE, OTHER, SELFPAY | LOC: HWRCS 12:53 | PROVIDERS: ATTENDING PHYSICIAN Internal Medicine Cardiovascular Disease; FAMILY PHYSICIAN Internal Medicine Geriatric Medicine | DX: Z95.2 Presence of prosthetic heart valve (principal); I44.0 Atrioventricular block, first degree; I10 Essential (primary) hypertension; I35.0 Nonrheumatic aortic (valve) stenosis | CPT/HCPCS: 93306 ==